=== PATIENT | female | born 1945 | race Caucasian/White ===

== ENCOUNTER → 2018-03-28 15:43 | Outpatient (CLI) | payer MEDICARE, OTHER, SELFPAY ==
--- NOTE | 2018-03-28 15:47 | BI_ITS ---
MAMMOGRAPHY - BILATERAL SCREENING REASON FOR EXAM: Female, 72 years old. Routine annual screening examination. PERTINENT HISTORY: Non-contributory. TECHNIQUE: Digital bilateral breast callie (3D mammographic acquisition) in the CC and MLO projections. 2-D mediolateral oblique (MLO) and craniocaudad (CC) views of both breasts were obtained. CAD: Full Field Digital Mammography with Computer Added Detection was performed. COMPARISON: Comparison is made with prior study dated March 16, 2017 and February 26, 2016. FINDINGS: Breast Composition: The breasts are heterogeneously dense, which may obscure small masses. There are no dominant masses or suspicious calcifications. Stable diffuse bilateral calcifications. Stable appearance of the bilateral axillary lymph nodes. No other significant abnormalities are identified. There has been no significant change since the prior study. BI/SCREENING MAMM (CAD), BILAT IMPRESSION: Stable bilateral screening mammogram. Yearly follow-up mammogram recommended. (A) ASSESSMENT CATEGORY: BIRADS Category 2: Benign. A letter regarding these results will be sent to the patient by the facility within 30 days. Approximately 10% of breast cancers are not detected by mammography. A normal mammogram should not delay biopsy of a clinically suspicious abnormality. [id number] Electronically Signed: Aiden Dalton MD at 8:16 EST Tel [phone], Service support ,
== END ==
PROVIDERS: Family Provider Internal Medicine; PCP Internal Medicine; Visit Provider Internal Medicine
DX: Z12.31 Encounter for screening mammogram for malignant neoplasm of breast (principal)
CPT/HCPCS: 77063; 77067

== ENCOUNTER → 2019-04-19 | Outpatient (CLI) | payer MEDICARE, OTHER, SELFPAY ==
--- NOTE | 2019-04-19 12:50 | BI_ITS ---
MAMMOGRAPHY - BILATERAL SCREENING REASON FOR EXAM: Female, 73 years old. Routine annual screening examination. PERTINENT HISTORY: Non-contributory. TECHNIQUE: Digital bilateral breast maddie (3D mammographic acquisition) in the CC and MLO projections. 2-D mediolateral oblique (MLO) and craniocaudad (CC) views of both breasts were obtained. CAD: Full Field Digital Mammography with Computer Added Detection was performed. COMPARISON: Comparison is made with prior study dated March 28, 2018 and March 24, 2017. FINDINGS: Breast Composition: The breasts are heterogeneously dense, which may obscure small masses. There are no dominant masses or suspicious calcifications. Stable scattered calcifications bilaterally. No focal clusters seen. Stable benign-appearing bilateral axillary lymph nodes. No other significant abnormalities are identified. There has been no significant change since the prior study. BI/SCREEN MAMM (CAD) W/MADDIE BILAT IMPRESSION: Stable bilateral screening mammogram. Yearly follow-up mammogram recommended. (A) ASSESSMENT CATEGORY: BIRADS Category 2: Benign. A letter regarding these results will be sent to the patient by the facility within 30 days. Approximately 10% of breast cancers are not detected by mammography. A normal mammogram should not delay biopsy of a clinically suspicious abnormality. [id number] Electronically Signed: Aiden Dalton, at 14:28 EST , Service support ,
== END | disposition home or self-care (01) ==
PROVIDERS: PCP Internal Medicine; Referring Provider Internal Medicine; Visit Provider Internal Medicine
DX: Z12.31 Encounter for screening mammogram for malignant neoplasm of breast (principal)
CPT/HCPCS: 77063; 77067

== ENCOUNTER → 2020-07-16 08:37 | Outpatient (CLI) | payer MEDICARE, OTHER, SELFPAY ==
--- NOTE | 2020-07-16 08:42 | BI_ITS ---
MAMMOGRAPHY - BILATERAL SCREENING REASON FOR EXAM: Female, 74 years old. Routine annual screening examination. PERTINENT HISTORY: Non-contributory. TECHNIQUE: Digital bilateral breast maddie (3D mammographic acquisition) in the CC and MLO projections. 2-D mediolateral oblique (MLO) and craniocaudad (CC) views of both breasts were obtained. CAD: Full Field Digital Mammography with Computer Added Detection was performed. COMPARISON: Comparison is made with prior study dated 10/18/2019 and 03/28/2018. FINDINGS: Breast Composition: The breasts are heterogeneously dense, which may obscure small masses. There are no dominant masses or suspicious calcifications. Stable scattered bilateral calcifications. No focal cluster is seen. No other significant abnormalities are identified. There has been no significant change since the prior study. BI/SCRN MAMM (CAD)W/MADDIE BILAT IMPRESSION: Stable bilateral screening mammogram. Yearly follow-up mammogram recommended. (A) ASSESSMENT CATEGORY: BIRADS Category 2: Benign. A letter regarding these results will be sent to the patient by the facility within 30 days. Approximately 10% of breast cancers are not detected by mammography. A normal mammogram should not delay biopsy of a clinically suspicious abnormality. [id number] Electronically Signed: Aiden Dalton MD at 9:21 EDT , Service support ,
== END ==
PROVIDERS: PCP Internal Medicine; Referring Provider Internal Medicine; Visit Provider Internal Medicine
DX: Z12.31 Encounter for screening mammogram for malignant neoplasm of breast (principal)
CPT/HCPCS: 77063; 77067

== ENCOUNTER → 2021-07-19 | Outpatient (CLI) | payer MEDICARE, OTHER, SELFPAY ==
--- NOTE | 2021-07-19 08:48 | BI_ITS ---
MAMMOGRAPHY - BILATERAL SCREENING REASON FOR EXAM: Female, 75 years old. Routine annual screening examination. PERTINENT HISTORY: Non-contributory. TECHNIQUE: Digital bilateral breast maddie (3D mammographic acquisition) in the CC and MLO projections. 2-D mediolateral oblique (MLO) and craniocaudad (CC) views of both breasts were obtained. CAD: Full Field Digital Mammography with Computer Added Detection was performed. COMPARISON: Comparison is made with prior study dated 07/16/2020 and 04/19/2019. FINDINGS: Breast Composition: The breasts are heterogeneously dense, which may obscure small masses. There are no dominant masses or suspicious calcifications. Since prior study, there has been a progression of the microcalcifications diffusely in both breasts more prominent on the left side. No other significant abnormalities are identified. BI/SCRN MAMM (CAD)W/MADDIE BILAT IMPRESSION: There is been an increase in the scattered bilateral microcalcifications without a focal cluster seen. Yearly follow-up mammogram recommended. (A) ASSESSMENT CATEGORY: BIRADS Category 2: Benign. A letter regarding these results will be sent to the patient by the facility within 30 days. Approximately 10% of breast cancers are not detected by mammography. A normal mammogram should not delay biopsy of a clinically suspicious abnormality. [id number] Electronically Signed: Aiden Dalton MD at 10:29 EDT ,
== END | disposition home or self-care (01) ==
PROVIDERS: PCP Internal Medicine; Referring Provider Clinical Nurse Specialist; Visit Provider Clinical Nurse Specialist
DX: Z12.31 Encounter for screening mammogram for malignant neoplasm of breast (principal)
CPT/HCPCS: 77063; 77067

== ENCOUNTER → 2022-05-04 | Outpatient (CLI) | payer MEDICARE, OTHER, SELFPAY ==
--- NOTE | 2022-05-04 12:50 | CT_ITS ---
STUDY: CT LUMBAR SPINE WITH INTRATHECAL CONTRAST (LUMBAR CT MYELOGRAM) REASON FOR EXAM: Female, 76 years old. RADICULOPATHY RADIATION DOSAGE (If Supplied By Facility): CTDIvol = ( 11.60 ) mGy, DLP = ( 279.08 ) mGycm TECHNIQUE: Transaxial images were obtained from the T12 vertebra through the S1 vertebral level, following intrathecal administration of 10 ml of ISOVUE-M 200 contrast material, performed by Dr. TYLER Almanza. Please refer to this physicians technical notes for procedural details. Coronal and sagittal reconstructions were obtained. Individualized dose optimization techniques were used for this CT. COMPARISON: None. FINDINGS: Normal lumbar lordosis. There is no substantial scoliosis. The patient is status post laminectomy and interpedicular screw and herman fixation at the L2-L3, L3-L4 and L4-L5 levels. There is dependent layering of contrast material in the distal thecal sac. The conus medullaris terminates in a normal position at the L1-L2 level. There is no demonstrated cauda equina nerve root abnormality or intraspinal mass. L1-2: Marked degree of spinal stenosis at the L1-L2 level caused by posterior spondylosis and hypertrophy of the facet joints as well as the ligamentum flavum. Marked degree of disc space narrowing with degeneration and spondylosis. L2-3: Marked degree of disc space narrowing. The patient is status post interpedicular screw and herman fixation. No significant stenosis seen. L3-4: Status post interpedicular screw and herman fixation. No evidence of spinal stenosis. L4-5: Mild degree of anterior listhesis of L4 on L5. Disc space narrowing. Spondylosis. No significant stenosis is seen. L5-S1: Normal endplates. Normal disc height and morphology. Normal bilateral facet joints. Normal central canal and bilateral lateral recesses. Normal bilateral intervertebral neural foramina. Degenerative changes. Atherosclerotic plaque formation of the abdominal aorta. CT/Spine Lumbar WITH Contrast IMPRESSION: Spinal stenosis at the T12-L1 and L1-L2 levels as described. Electronically Signed: Aiden Dalton MD at 15:21 EST ,
[2022-05-04 12:55] VITALS: BP 143/71; PULSE 89; RESP 18; TEMP 36.8; O2SAT 97; BMI 26.9
--- NOTE | 2022-05-04 13:24 | RAD_ITS ---
PROCEDURE: LUMBAR MYELOGRAM DATE OF EXAMINATION: 05/04/2022. INDICATION: Female, 76 years old. Low back pain. Prior laminectomy and fusion at the L2-L3, L3-L4 and L4-L5 levels. PHYSICIAN: Aiden Dalton M.D. CONSENT: The patient''s history and physical findings were reviewed. The lumbar myelogram procedure was discussed with the patient prior to signing a consent. SEDATION: Local anesthesia with 3 mL of 1% lidocaine was used. FLUOROSCOPY TIME (if supplied): (1:30) minutes/seconds. Injection Information: 10 cc of M 200 Number of images obtained: 4 TECHNIQUE: Digital fluoroscopy was used to identify a safe approach for the lumbar myelogram. The back was prepped and draped in usual fashion. Local anesthesia was utilized. Under fluoroscopic guidance a 22-gauge spinal needle was inserted into the spinal canal at the L2-L3 level. Clear spinal fluid was seen. The. 10 mL of Isovue 200 M was injected into the spinal canal. The patient status post laminectomy and interpedicular screw and herman fixation at the L2-L3, L3-L4 and L4-L5 levels. Multilevel disc space narrowing. Mild anterior listhesis of L4 on L5. There is evidence of a spinal stenosis and blockage at the L1-L2 level. A CT scan will follow. RAD/Lumbar Myelogram IMPRESSION: Successful lumbar myelogram. A CT scan will follow. Electronically Signed: Aiden Dalton MD at 14:37 EST ,
[2022-05-04] MEDS: Lidocaine 2% (5ml sdv) 5 ML VIAL.MPF INFILT (13:45)
[2022-05-04 14:12] VITALS: BP 126/70; PULSE 79; RESP 18; O2SAT 97
== END | disposition home or self-care (01) ==
LOC: RAD 12:47
PROVIDERS: PCP Internal Medicine; Referring Provider Orthopaedic Surgery Orthopaedic Surgery of the Spine; Visit Provider Orthopaedic Surgery Orthopaedic Surgery of the Spine
DX: M54.10 Radiculopathy, site unspecified (principal)
CPT/HCPCS: 62304; 72132; Q9965

== ENCOUNTER 2022-06-07 07:28 | Outpatient (RCR) | payer MEDICARE, OTHER, SELFPAY ==
--- NOTE | 2022-06-07 09:27 | HP.PTEVAL_ITS ---
Patient's Visit Information NORY AUGUSTIN is a 76 year old F referred to Physical Therapy by Dr. Carlos Manuel Clifford MD with a diagnosis of Clifford. Date of Evaluation: 06/07/22 Physical Therapist: KRISTINA Lopez - Visit Plan Plan: Hold Chart at this time. Pt will call in after she has her back surgery. Pt is unable to stand up on her own because as soon as she stands up her legs want to give out and within one min her legs are buckling and therapist has to stabilize the pt. May DC this chart at that time and have the back surgeon referral take over for back surgery and balance - Subjective 10 years ago she had LB surgery where she had a fusion and did not have any issues and played [employer] and bowled. She did some AT and quit coming to AT and just did exercises with stretch bands cause if she doesn't she can not walk. She used to get up and get her housework done and flower beds etc and then in Jan she started to have L sided back pain and now she is so unstable. Now if she starts to fall, she falls. On June 27 she is having back surgery above where she had surgery last time. She went to another Dr and a neurologist and an MRI and after that she needs surgery and will get it on June 27. Dr Colindres made the referral for PT before they got the results of the MRI. She was told that she had neuropathy but has not lost feeling in her feet. She can only stand for 5 min and then her legs hurt from the knee down and it is almost like she can not move her legs. She can drive and sit for as long as she can wants with no issue. She uses the walker at all times when she is out. She uses a cane or furniture at home. She fell in [place] down the steps and slipped with her slick socks and did not have a banister at a time. Stairs: up and down at least once a day. She sometimes goes 2 feet to step and sometimes recip with a railing on one side. - Pain B lateral calf pain Pain Intensity (Out of 10): 10 Comment: with walking or standing - Objective Sit to stand: she has to use the knees on the back of the chair and unstable on her feet for a second but able to get up without using her arms. Pt is unable to heel raise B but she is able to B toe raise approx 1/2 normal ROM. Gait: walks with walker out in front with decrease heel to toe pattern and no push off with flexed B knees and flexed trunk. LE MMT: R hip flex 17.1 and L hip flex 18.3. R knee ext 20.5 and L knee ext 23.3. R knee flex 16.3 and L 18.1. Patellar DTR 0/3 B. Tinetti 10. Standing balance: pt needs min A and she is unable to stand greater than 2 seconds without UE support and her knees start to buckle within one minute of standing and pt complains of legs giving out and its getting worse. - Balance/Special Test Scores Tinetti Balance Score: 5 Tinetti Gait Score: 5 Tinetti Balance & Gait Score: 10 Lower Extremity Functional Score: 25 - Rehabilitation Potential Rehabilitation Potential: Good - Anticipated Interventions Thank you for the opportunity to evaluate your patient. For Medicare and Medicare HMO plans, please review the plan of care and approve it. It will need to be FAXED BACK to us at [phone] for Medicare purposes. For Medicare only, by signing this I certify the plan of care. Please let me know if there are questions or concerns regarding this plan of care. Physician Signature: Date:
== END 2022-06-07 19:00 | disposition home or self-care (01) ==
LOC: PT 07:28
PROVIDERS: PCP Internal Medicine; Referring Provider Psychiatry & Neurology Neurology; Visit Provider Psychiatry & Neurology Neurology
DX: G62.9 Polyneuropathy, unspecified (principal)
CPT/HCPCS: 97162

== ENCOUNTER → 2022-06-24 | Outpatient (CLI) | payer MEDICARE, OTHER, SELFPAY ==
--- NOTE | 2022-06-24 14:01 | STRESSREP_ITS ---
Stress Test Report Date: 06/24/2022 Procedure: Pharmacologic stress nuclear imaging study Indications: Abnormal EKG Consent: Per the patient Procedure: The patient underwent pharmacologic (Regadenoson 0.4mg ) evaluation with a peak heart rate of 180 beats per minute (81%predicted maximal heart rate) and a peak blood pressure of 148 over mmHg. The baseline ECG demonstrated normal sinus rhythm. The peak pharmacologic ECG demonstrated no ischemic. [There were no cardiac dysrhythmias pretest, during pharmacologic infusion, or recovery]. [There was no complaint of chest discomfort during pharmacologic infusion or recovery]. The patient was injected with 11.8 millicuries of technetium 99m Cardiolite and subsequently rest SPECT Cardiolite nuclear imaging was obtained in the horizontal long, vertical long, and short axis views. The patient underwent pharmacologic (Regadenoson) evaluation. The patient was injected with 33.9 millicuries of technetium 99m Cardiolite and subsequently stress SPECT Cardiolite nuclear imaging was obtained in the horizontal long, vertical long, and short axis views. A gated Cardiolite study at peak stress was obtained. The examination was stopped secondary to completion of protocol. Rest and stress SPECT Cardiolite nuclear imaging status post realignment, normalization, and attenuation correction demonstrate uniform tracer uptake with no fixed or reversible perfusion defect. [There is end systolic thickening and brightening]. [The gated Cardiolite study demonstrates myocardial thickening and inward wall motion]. The reported LVEF is 89%. Impression: 1. Pharmacologic (Regadenoson) evaluation 2. Peak pharmacologic ECG with no ischemic. 3. No fixed or reversible perfusion defect. 5. No complaints of chest pain during the study. 6. The gated Cardiolite study reports an LVEF of 89%. This note was generated with [employer] software. It may contain incorrect words, spelling, and punctuation that were not noted in checking the note before signing.
== END | disposition home or self-care (01) ==
LOC: CVS 06:21
PROVIDERS: PCP Internal Medicine; Referring Provider Physician Assistant Medical; Visit Provider Physician Assistant Medical
DX: R94.31 Abnormal electrocardiogram [ECG] [EKG] (principal); E11.9 Type 2 diabetes mellitus without complications; I10 Essential (primary) hypertension
CPT/HCPCS: 78452; 93017; A9500; A4216; J2785

== ENCOUNTER 2022-07-03 12:21 | Inpatient (IN) | payer MEDICARE, OTHER, SELFPAY ==
[2022-07-03 12:47] VITALS: BP 147/64; PULSE 100; RESP 16; TEMP 37.2; O2SAT 100; BMI 26.6
[2022-07-03] MEDS: Gabapentin 300 MG Capsule PO ×2 (14:17→20:35)
[2022-07-03] MEDS: metFORMIN HCl 500 MG Tablet PO (17:09)
[2022-07-03 17:23] VITALS: O2SAT 100
[2022-07-03 17:30] LABS: Bedside Glucose 144 mg/dL (74-106)
[2022-07-03 20:00] VITALS: BP 137/62; PULSE 119; RESP 18; TEMP 37.7; O2SAT 98
[2022-07-03] MEDS: Lisinopril 20 MG Tablet PO (20:34)
[2022-07-03] MEDS: Niacin SA 500 MG Tablet PO (20:34)
[2022-07-03 23:49] VITALS: TEMP 37.7
[2022-07-04] MEDS: cycloBENZAPRine HCl 5 MG TABLET PO (03:57)
[2022-07-04] MEDS: Gabapentin 300 MG Capsule PO ×2 (05:11→14:15)
[2022-07-04 05:39] LABS: Absolute Lymphocyte Count 2.09 X10^3/uL (0.83-4.51); Absolute Neutrophil Count 8.9 X10^3/uL (2.0-7.7); Basophil% 0.8 % (0-1); Eosinophil# 0.04 X10^3/uL; Eosinophils% 0.3 % (0-5); Hematocrit 25.6 % (37-47); Hemoglobin 8.5 g/dL (12.0-15.0); Lymphocyte # 2.09 X10^3/ul (0.83-4.51); Lymphocyte % 16.2 % (19-41); Mean Corp Hgb Conc 33.2 g/dL (32-36); Mean Corpuscular Hgb 29.2 pg (27.0-32.0); Monocyte# 1.52 X10^3/uL; Monocyte% 11.8 % (0-10); NRBC Flagged by Analyzer 0 % (0-5); Neutrophil # 8.91 X10^3/uL (2.7-7.7); Neutrophil % 69.3 % (47-70); POSITIVE DIFFERENTIAL YES; Platelet Count 330 K/mm3 (150-450); RBC Distribution Width CV 13.2 % (11.6-14.6); RBC Distribution Width SD 42.3 fl (35.1-43.9); Red Blood Count 2.91 M/mm3 (4.2-5.4); White Blood Count 12.9 K/mm3 (4.4-11.0)
[2022-07-04 06:04] LABS: Differential Indicated SCAN CRITERIA MET
[2022-07-04 07:03] LABS: ALB/GLOB Ratio 0.7 RATIO (0.9-2.4); AST(SGOT) 19 U/L (15-37); Alanine Aminotransfer ALT/SGPT 21 U/L (13-56); Albumin, Serum 2.7 g/dL (3.2-5.0); Alkaline Phosphatase 59 U/L (45-117); Anion Gap 7 (5-15); BUN 17 mg/dL (7-18); BUN/Creat Ratio 21.1 RATIO (10-20); Calcium,Total 9.1 mg/dL (8.5-10.1); Chloride 98 mmol/L (98-107); Creatinine, Serum 0.81 mg/dL (0.55-1.02); EST Glomerular Filtration Rate 74 mL/min (>60); Est Glom Filt Rate - Afr Amer 89 mL/min (>60); Estimated Creatinine Clearance 56.72 ml/min; Glucose 252 mg/dL (74-106); Magnesium 1.4 mg/dL (1.6-2.6); Phosphorus 2.5 mg/dL (2.5-4.9); Potassium 3.9 mmol/L (3.5-5.1); Protein, Total 6.7 g/dL (6.4-8.2); Sodium Level 127 mmol/L (136-145)
[2022-07-04 07:12] VITALS: O2SAT 97
[2022-07-04 07:15] LABS: Bedside Glucose 231 mg/dL (74-106)
[2022-07-04 07:38] VITALS: BP 143/52; PULSE 115; RESP 16; TEMP 37.2; O2SAT 95
[2022-07-04] MEDS: Lisinopril 20 MG Tablet PO ×2 (08:10→20:38)
[2022-07-04] MEDS: Loratadine 10 MG Tablet PO (08:10)
[2022-07-04] MEDS: HYDROcodone Bitartrate/Apap 5/325 Tablet PO ×2 (08:10→14:15)
[2022-07-04] MEDS: Glimepiride 1 MG Tablet PO (08:10)
[2022-07-04] MEDS: amLODIPine 5 MG Tablet PO (08:10)
[2022-07-04] MEDS: Multivitamins,Therapeutic Tablet 1 TABLET PO (08:10)
[2022-07-04 08:31] LABS: Vitamin D,25 Hydroxy 50.1 ng/mL
[2022-07-04 09:37] LABS: Absolute Lymphocyte Count 1.57 X10^3/uL (0.83-4.51); Absolute Neutrophil Count 9.8 X10^3/uL (2.0-7.7); Basophil# 0.07 X10^3/uL; Basophil% 0.5 % (0-1); Eosinophil# 0.01 X10^3/uL; Eosinophils% 0.1 % (0-5); Hematocrit 25.1 % (37-47); Hemoglobin 8.4 g/dL (12.0-15.0); Lymphocyte # 1.57 X10^3/ul (0.83-4.51); Lymphocyte % 12.1 % (19-41); Mean Corp Hgb Conc 33.5 g/dL (32-36); Mean Corpuscular Hgb 29.3 pg (27.0-32.0); Mean Corpuscular Volume 87.5 fL (81-99); Mean Platelet Vol. 8.7 fl (6.2-12.0); Monocyte# 1.31 X10^3/uL; Monocyte% 10.1 % (0-10); NRBC Flagged by Analyzer 0 % (0-5); Neutrophil # 9.77 X10^3/uL (2.7-7.7); Neutrophil % 75.3 % (47-70); Platelet Count 328 K/mm3 (150-450); RBC Distribution Width CV 13.2 % (11.6-14.6); RBC Distribution Width SD 41.8 fl (35.1-43.9); Red Blood Count 2.87 M/mm3 (4.2-5.4)
[2022-07-04 09:59] LABS: ALB/GLOB Ratio 0.7 RATIO (0.9-2.4); AST(SGOT) 21 U/L (15-37); Alanine Aminotransfer ALT/SGPT 20 U/L (13-56); Albumin, Serum 2.7 g/dL (3.2-5.0); Alkaline Phosphatase 59 U/L (45-117); Anion Gap 7 (5-15); BUN 20 mg/dL (7-18); BUN/Creat Ratio 17.5 RATIO (10-20); Calcium,Total 9.2 mg/dL (8.5-10.1); Chloride 98 mmol/L (98-107); Creatinine, Serum 1.14 mg/dL (0.55-1.02); EST Glomerular Filtration Rate 49 mL/min (>60); Est Glom Filt Rate - Afr Amer 60 mL/min (>60); Globulin 4.1 g/dL (2.2-4.2); Glucose 248 mg/dL (74-106); Magnesium 1.4 mg/dL (1.6-2.6); Phosphorus 2.9 mg/dL (2.5-4.9); Potassium 4.1 mmol/L (3.5-5.1); Protein, Total 6.8 g/dL (6.4-8.2); Sodium Level 128 mmol/L (136-145)
[2022-07-04 10:03] LABS: Vitamin D,25 Hydroxy 49.7 ng/mL
--- NOTE | 2022-07-04 10:10 | HP.PCM_ITS ---
HPI - General General Date of Admission: 07/03/22 Date of Service: 07/04/22 Chief Complaint: Debility due to Lumbar decompression and fusion for spinal canal stenosis. HPI Narrative PATRICIA AUGUSTIN, is a 76 YO F with a PMH of hypertension, diabetes mellitus type 2, lumbar radiculopathy with myelopathy, lumbar canal stenosis, left anteri or hemiblock, osteopenia and osteoarthritis who underwent a lumbar laminectomy and fusion with removal of hardware on 06/27/[address] Aragon. She was seen by PT/OT post operatively and recommendation was made for acute rehab. Patricia was admitted to the acute inpt rehab unit at [facility] on 07/01/22 for 3 hours of therapy daily to restore function/independence at or near her level prior to surgery. Prior to surgery she had a pharmacologic stress test that was negative for ischemia. Afebrile - Temp last night was 99.8. She tells me that she had a Khan catheter while at [facility]. She denies burning with urination but, It doesn't feel the same down there. WBC is elevated. VSS-systolic blood pressure is mildly elevated and she has been tachycardic since yesterday midday. She was taking 25 mg of hydrochlorothiazide daily prior to admission. She has also had 3 very loose bowel movements today which she associates with drinking multiple cups of coffee between last night and this morning. Maintaining appropriate oxygen saturation on RA Oral intake is good Discussed with nursing - no problems that need addressed Reviewed the PT/OT/ST notes Medication list reviewed. Andria tells me that her pain is well controlled. She slept well last night. She denies N/V. She denies lightheadedness. [facility] Medical History (Updated 07/04/22 @ 11:[address] Kyara Green DO) Benign essential HTN Cataract Diabetes mellitus, type 2 Lumbar canal stenosis Osteoarthritis Osteopenia Radiculopathy Home Medications Chondroitin Sulfate 1 tab PO DAILY 02/28/13 [History Last Taken Unknown] lisinopril 10 mg tablet 20 mg PO BID BP 02/28/13 [History Last Taken Unknown] metformin 500 mg tablet 500 mg PO DINNER Blood sugar 02/28/13 [History Last Taken Unknown] niacin 500 mg tablet,extended release 24 hr 500 mg PO QHS Supplement 02/28/13 [History Last Taken Unknown] omega-3 fatty acids-fish oil 360 mg-1,200 mg capsule 1 ea PO DAILY Supplement 02/28/13 [History Last Taken Unknown] amlodipine 5 mg tablet 5 mg PO DAILY BP 07/03/22 [History Last Taken Unknown] calcium carb-ergocalciferol (vit D2) 600 mg calcium-200 unit tablet 1 tab PO DAILY Supplement 07/03/22 [History Last Taken Unknown] cyclobenzaprine 5 mg tablet 5 - 10 mg PO TID PRN Muscle spasms 07/03/22 [History Last Taken Unknown] docusate sodium 100 mg capsule 100 mg PO QODAY Constipation 07/03/22 [History Last Taken Unknown] fexofenadine 180 mg tablet 180 mg PO DAILY Allergies 07/03/22 [History Last Taken Unknown] gabapentin 300 mg capsule 300 mg PO TID Neuropathy 07/03/22 [History Last Taken Unknown] glimepiride 1 mg tablet 1 mg PO DAILY Blood sugar 07/03/22 [History Last Taken Unknown] glucosamine sulfate 500 mg tablet (Glucosamine) 500 mg PO BID Supplement 07/03/22 [History Last Taken Unknown] multivitamin 1 tab PO DAILY Supplement 07/03/22 [History Last Taken Unknown] oxycodone-acetaminophen 5 mg-325 mg tablet (Percocet) 1 tab PO Q6H PRN Pain 1-10 07/03/22 [History Last Taken Unknown] Allergy/AdvReac Type Severity Reaction Status Date / Time chocolate flavor Allergy Severe Unknown Verified 06/24/22 08:51 aspirin AdvReac Other Verified 06/24/22 08:51 Family History (Updated 07/04/22 @ 10:[address] Kyara Green DO) Mother Myocardial infarction Alzheimer's dementia Father Myocardial infarction Cancer Prostate cancer Surgical History (Updated 07/04/22 @ 10:[address] Kyara Green DO) H/O bilateral cataract extraction History of hysterectomy History of lumbar fusion History of tubal ligation S/P hysterectomy S/P lumbar fusion S/P lumbar fusion Social History (Updated 07/04/22 @ 11:[address] Kyara Green DO) household members: spouse housing: house number of children: 0 Smoking Status: Never smoker Electronic Cigarette Use: not used alcohol intake: never ROS Constitutional Constitutional: Denies anorexia, change in weight, chills, difficulty sleeping, fatigue, fever(s) or night sweats Eyes Eyes: Denies blurry vision, change in vision, eye pain or loss of vision ENT HEENT: Denies abnormal hearing, dysphagia, headache(s), hearing loss, nasal congestion or sore throat Cardiovascular Cardiovascular: Denies chest pain, dyspnea on exertion, edema, lightheadedness, orthopnea, palpitations, paroxysmal nocturnal dyspnea or syncope Respiratory/Chest Respiratory/Chest: Denies cough, dyspnea, shortness of breath at rest, shortness of breath with exertion or wheezing Gastrointestinal Gastrointestinal: Reports other Details: She had 3 loose stools today and she attributes this to drinking too much coffee. ; Denies abdominal pain, constipation, dyspepsia, hematemesis, hematochezia, nausea or vomiting Genitourinary Genitourinary: Reports urinary urgency; Denies dysuria, hematuria, nocturia, urinary frequency, urinary hesitancy or urinary incontinence Musculoskeletal Musculoskeletal: Denies joint pain, joint swelling or neck pain Integumentary Integumentary: Denies pruritus or rash Neurologic Neurologic: Reports weakness; Denies abnormal hearing, confusion, disequilibrium, dizziness, headache(s), paresthesias, seizures, sensory deficit or tremor(s) Psychiatric Psychiatric: Denies anxiety, depression, homicidal ideation or suicidal ideation Endocrine Endocrinology: Denies change in body appearance, polydipsia or polyuria Hematologic/Lymphatic Hematologic/Lymphatic: Denies easy bleeding, easy bruising or lymphadenopathy Allergic/Immunologic Allergic/Immunologic: Denies rhinitis, eczemia or asthma Vital Signs Vital Signs Vital Signs: 07/03/22 12:47 07/03/22 17:23 07/03/22 20:00 Temperature 98.9 F 99.9 F H Temperature Source Temporal Oral Pulse Rate 100 119 H Pulse Strength Respiratory Rate 16 18 Respiratory Effort Respiratory Depth Respiratory Pattern Blood Pressure 147/64 H 137/62 H Blood Pressure Mean 91 87 Blood Pressure Source Monitor Monitor Blood Pressure Position Semi-Fowlers Sitting Blood Pressure Location Right Arm Right Forearm Pulse Ox 100 100 98 Oxygen Delivery Method Room Air Room Air Room Air 07/03/22 20:00 07/03/22 20:00 07/03/22 23:49 Temperature 99.8 F H Temperature Source Oral Pulse Rate 119 H Pulse Strength Normal (2+) Respiratory Rate 18 Respiratory Effort Normal Non-Labored Respiratory Depth Normal Respiratory Pattern Normal Blood Pressure Blood Pressure Mean Blood Pressure Source Blood Pressure Position Blood Pressure Location Pulse Ox 98 Oxygen Delivery Method Room Air 07/04/22 07:12 07/04/22 07:38 07/04/22 09:43 Temperature 99.0 F Temperature Source Oral Pulse Rate 115 H Pulse Strength Normal (2+) Respiratory Rate 16 Respiratory Effort Respiratory Depth Respiratory Pattern Blood Pressure 143/52 H Blood Pressure Mean 82 Blood Pressure Source Monitor Blood Pressure Position Semi-Fowlers Blood Pressure Location Left Arm Pulse Ox 97 95 Oxygen Delivery Method Room Air Room Air Weight Weight: 132 lb Body Mass Index (BMI) 26.6 Physical Exam Const alert, oriented x3 and no apparent distress Constitutional Narrative: Making good eye contact, appropriate General Appearance: cooperative and comfortable HEENT normocephalic and head/scalp atraumatic HEENT Narrative: Very DRY MM. normal buccal mucosa. Throat: Negative for hoarseness Eyes PERRL, EOMs intact bilaterally, conjunctivae normal and no scleral icterus General Eye: normal appearance of both eyes and normal light reflex Neck no lymphadenopathy, supple, no JVD and no carotid bruits General: trachea midline Chest Chest: symmetrical chest wall rise Resp normal respiratory effort and no use of accessory muscles Resp Narrative: Not tachypneic and no conversational dyspnea. She has coarse crackles in both bases with no cough and no SOB. Effort and Inspection: able to speak in complete sentences Cardio regular rhythm, S1 normal heart sound, S2 normal heart sound, no murmurs, no rub and no gallops Cardio Narrative: Tachycardic with HR 100-115 GI normal to inspection, nondistended, normoactive bowel sounds, soft to palpation and non-tender GI Narrative: No guarding with palpation. Back/Spine Back/Spine Narrative: She tells me that her back is not hurting at this time. She has only had 1 Hydrocodone since admission to rehab and that was this AM. Extremity normal capillary refill, no clubbing, cyanosis or edema and no calf tenderness Skin Skin Narrative: No rashes, no skin breakdown. Wound Narrative: She has a cicatrix on her low back from recent Laminectomy and fusion. It is intact and has no erythema and No DC. Neuro oriented x3 and CN's II-XII intact bilaterally Neuro Narrative: LE's are weak BL, R>L. Denies any numbness in any part of her body. Psych affect normal Psych Narrative: Appropriate, making good eye contact. Able to stay on topic and focus. No flight of ideas. Does not appear anxious or depressed. Conversant and relating well to staff. Results Lab / Micro Data Result Diagrams: 07/04/22 09:24 07/04/22 09:24 Labs: Laboratory Results - last 24 hr 07/03/22 16:59: POC Glucose 144 H 07/04/22 05:08: Hemoglobin A1c 6.0 H 07/04/22 05:08: Vitamin D 25-Hydroxy 50.1 07/04/22 05:08: WBC 12.9 H, RBC 2.91 L, Hgb 8.5 L, Hct 25.6 L, MCV 88.0, MCH 29.2, MCHC 33.2, RDW Std Deviation 42.3, RDW Coeff of [place] 13.2, Plt Count 330, MPV 9.0, Immature Gran % (Auto) 1.600 H, Neut % (Auto) 69.3, Lymph % (Auto) 16.2 L, [place] % (Auto) 11.8 H, Eos % (Auto) 0.3, Baso % (Auto) 0.8, Absolute Neuts (auto) 8.9 H, Absolute Lymphs (auto) 2.09, Nucleated RBC % 0, Diff Path Review M ay foll 07/04/22 05:08: Sodium 127 L, Potassium 3.9, Chloride 98, Carbon Dioxide 22.0, Anion Gap 7, BUN 17, Creatinine 0.81, Estim Creat Clear Calc 56.72, Est GFR (MDRD) Af Amer 89, Est GFR (MDRD) Non-Af 74, BUN/Creatinine Ratio 21.1 H, Glucose 252 H, Calcium 9.1, Phosphorus 2.5, Magnesium 1.4 L, Total Bilirubin 0.60, AST 19, ALT 21, Alkaline Phosphatase 59, Total Protein 6.7, Albumin 2.7 L, Globulin 4.0, Albumin/Globulin Ratio 0.7 L 07/04/22 06:47: POC Glucose 231 H 07/04/22 09:24: WBC 13.0 H, RBC 2.87 L, Hgb 8.4 L, Hct 25.1 L, MCV 87.5, MCH 29.3, MCHC 33.5, RDW Std Deviation 41.8, RDW Coeff of [place] 13.2, Plt Count 328, MPV 8.7, Immature Gran % (Auto) 1.900 H, Neut % (Auto) 75.3 H, Lymph % (Auto) 12.1 L, [place] % (Auto) 10.1 H, Eos % (Auto) 0.1, Baso % (Auto) 0.5, Absolute Neuts (auto) 9.8 H, Absolute Lymphs (auto) 1.57, Nucleated RBC % 0 07/04/22 09:24: Sodium 128 L, Potassium 4.1, Chloride 98, Carbon Dioxide 23.0, Anion Gap 7, BUN 20 H, Creatinine 1.14 H, Estim Creat Clear Calc 40.30, Est GFR (MDRD) Af Amer 60, Est GFR (MDRD) Non-Af 49 L, BUN/Creatinine Ratio 17.5, Glucose 248 H, Calcium 9.2, Phosphorus 2.9, Magnesium 1.4 L, Total Bilirubin 0.50, AST 21, ALT 20, Alkaline Phosphatase 59, Total Protein 6.8, Albumin 2.7 L, Globulin 4.1, Albumin/Globulin Ratio 0.7 L 07/04/22 09:24: Vitamin D 25-Hydroxy 49.7 Assessment & Plan Assessment/Plan (1) Physical debility: (2) Radiculopathy: (3) Lumbar canal stenosis: (4) Myopathy: (5) S/P lumbar fusion: PLAN: 06/27/[address] Geiger (6) Acute blood loss as cause of postoperative anemia: (7) Hypomagnesemia: (8) Hyponatremia: (9) Benign essential HTN: (10) Diabetes mellitus, type 2: (11) Osteoarthritis: (12) Osteopenia: (13) Dehydration: PLAN: Plan PLAN PT for gait stability OT for ADL's Analgesics as needed Bowel protocol Fall precautions Assess for Anxiety/Depression GI prophylaxis - not necessary at this time......she denies any hx of PUD and she has no epigastric pain, N/V. DVT prophylaxis with PORTILLO mccray and SCDs. Will contact Dr. Hartman's office to find out when it is acceptable to start pharmacologic DVT prophylaxis. Follow up with Dr. Geiger and Dr. Jia Gimenez following DC from Rehab AM lab including CMP, CBC, Mag and Phos - personally reviewed. Start an IV of NS Check orthostatics 4 GM of IV mag today and start Magnesium Chloride tomorrow PO. Straight cath today and get a UA. She is feeling not quite right down there and she has leukocytosis with a L shift and a low grade fever. All questions were answered and I reviewed all paperwork sent to us from the [facility]. Recheck a BMP and a MAG in the AM Charges/Coding Visit Charges Inpatient E&M: 50487 Init Hosp L3
[2022-07-04 11:21] VITALS: BP 127/47; BP 128/51; BP 131/50; PULSE 103; PULSE 109; PULSE 124
--- NOTE | 2022-07-04 11:48 | REHABEVAL_ITS ---
Admission Information Primary Diagnosis:: Physical debility secondary to lumbar canal stenosis, radiculopathy and myopathy with recent lumbar laminectomy and fusion. Status Changes from Prescreening?: No changes Identified Actual Problem List:: Pain, ALteration in Cmfrt, Cognitve Impr/Memory Loss (mild ....may be due to medications and suspected UTI. ), Mobility Impaired, Self Care Deficit, Diabetes, Hyperglycemia, BP, Hypertension, Alteration/ Air Exchange, Fluid Change-Dehydration and Alteration-Leisure Activ. Potential Problem List:: DVT, Bleeding, Infection, UTI, Aspiration, Falls, Skin Integrity and Depression Risk of Complications DVT: PORTILLO Hose and Sequential Compression Device Bleeding: Monitor Lab Values, Nursing to Teach Precautions for anti-coagulation therapy., Wound, if applicable, to be assessed every shift. and Stroke patients assessed for lethargy or change in status. Infection: Clinical Staff to Monitor for S/S of infection: and S/S of infection include fever, redness, warmth, etc. Urinary Tract Infection: Monitor for frequency, burning, discomfort, or incontinence. and Nursing will obtain urine sample for urinalysis and C&S when ordered. Aspiration: Clinical staff will monitor for coughing, drooling, congestion., Speech will evaluate swallowing and dsyphasia. and Nursing will monitor patient swallowing during meals. Falls: Patient will be evaluated for Fall Precautions and Patient will be placed on Fall Precautions as indicated per protocol. Skin Breakdown: Nursing will assess skin daily using assessment tool. and Nursing will place on Skin Breakdown Precautions as indicated. Pain: Clinical staff will assess patient's pain level per protocol., Medications will be given, if needed, and the pain level reassessed. and Other methods: Massage, distraction, decrease stimulus, etc. used PRN. Plan of Care Patient requires physician specializing in physical medicine and rehab oversight to provide close medical supervision of rehab issues including: Pain Management, Sleep Problems, Bowel and Bladder, Medical and co-morbidity Management, DVT prophylaxis, Rehabilitation Leadership and Coordination of treatment team Patient needs Physical Therapy: For a minimum of 1 hour and At least 5 out of 7 days Patient needs Physical Therapy to improve:: Mobility, Strengthening, Transfers, Stretching, ROM, Endurance, Stairs, Gait and Balance Patient needs Occupational Therapy: For a minimum of 1 hour and At least 5 out of 7 days Patient needs Occupational Therapy to improve ADL's incl.: Eating, Grooming, Bathing, Dressing, Toileting, Toilet transfers, Community Reintegration, Higher functioning activities, Household tasks, Adaptive Equipment, Splinting and Other activities as determined Patient requires 24/7 Rehabilitation Nursing for: Pain Issues, Identifying and preventing risk factors, Monitoring and reporting current medical conditions, Assisting with ambulation, transfer, and all ADL's, Teaching patients about disease process and medications, Family teaching, Providing safe environment, Bowel and Bladder Issues, Skin integrity and Medication Management Patient needs Validation Scientist/ Case Management for: Discharge Planning, Arranging Home Equipment or Services and Family Interventions Patient needs Dietary and Nutrition Services for: Adequate Nutrition, Nutritional Supplements and Nutritional Education Goals Patient will remain: free from falls and or injury at time of discharge. Patient will perform bed mobility at: MOD I level of assist. Patient will complete transfers from bed to chair at: MOD I level of assist. Patient will ambulate: 100 feet, with LRD and - (250 feet with least restrictive device at mod I on various surfaces) Patient will complete upper body dressing at: MOD I level of assist. Patient will complete lower body dressing at: MOD I level of assist. (With adaptive equipment as needed) Patient will complete toileting at: MOD I level of assist. Patient will perform bathing at: MOD I level of assist. Patient will complete grooming at: MOD I level of assist. Patient will complete home management skills at: MOD I level of assist. Patient will achieve: 12 stairs (Ascend/descend 12 steps with 1 handrail at standby assist to allow access to the basement laundry.) and - (1 curb step) Patient will have pain level of: of 3 or less Patient's skin will: remain intact Patient will receive: adequate nutrition. Discharge Planning Estimated Length of stay (days): 21 Anticipated D/C Destination: Home with Outpt Therapy Was Preadmission Assessment Accurate?: Yes
[2022-07-04] MEDS: Magnesium Sulfate 4gm/100mL 4 GM/100 ML IV.SOLN. IV (15:49)
[2022-07-04] MEDS: 0.9% Saline Lock 10 ML Syringe IV (16:01)
[2022-07-04 16:38] LABS: Bacteria 0 SEEN /hpf (None Seen); Mucous, Urine 0 SEEN /hpf (<or=2+); Red Blood Cells-Urine 0 SEEN /hpf (0-5); Squamous Epithelial Cells - UA 0 SEEN /hpf (5-10)
[2022-07-04 16:45] LABS: Color, Urine Yellow (Yellow); Glucose, Dipstick Normal (Normal); Ketone-Dipstick Negative (Negative); Leukocyte Esterase-Dipstick 25 /ul (Negative); Nitrite-Dipstick Negative (Negative); Occult Blood-Urine Negative /ul (Negative); Protein-Dipstick 30 mg/dl (Negative); Urine Bilirubin Dipstick Negative (Negative); Urine Clarity Clear (Clear); Urine Urobilinogen Normal (Normal); Urine pH 6.5 (5.0 - 8.0)
[2022-07-04 16:51] LABS: Bedside Glucose 85 mg/dL (74-106)
[2022-07-04 17:08] LABS: White Blood Cells 0-5 SEEN /hpf (0-5)
[2022-07-04] MEDS: metFORMIN HCl 500 MG Tablet PO (17:14)
[2022-07-04 19:42] VITALS: BP 128/51; PULSE 103; RESP 18; TEMP 37.2; O2SAT 95
[2022-07-04 20:30] VITALS: PULSE 103; RESP 18; O2SAT 95
[2022-07-04] MEDS: Gabapentin 100 MG Capsule 200 MG PO (20:38)
[2022-07-04] MEDS: Niacin SA 500 MG Tablet PO (20:38)
[2022-07-04] MEDS: 0.9% Normal Saline 1,000 ML 100 ML IV (22:09)
[2022-07-04 22:20] LABS: Bedside Glucose 169 mg/dL (74-106)
--- NOTE | 2022-07-05 02:36 | NURSING ---
Reviewed and agree with Ermias RUIZ, documentation and assessment charting.
[2022-07-05] MEDS: traMADol 50 MG Tablet PO ×2 (05:40→22:05)
[2022-07-05] MEDS: Gabapentin 100 MG Capsule 200 MG PO ×3 (05:41→22:02)
[2022-07-05 06:33] LABS: Anion Gap 6 (5-15); BUN 21 mg/dL (7-18); BUN/Creat Ratio 27.2 RATIO (10-20); Calcium,Total 8.3 mg/dL (8.5-10.1); Chloride 99 mmol/L (98-107); Creatinine, Serum 0.77 mg/dL (0.55-1.02); EST Glomerular Filtration Rate 77 mL/min (>60); Est Glom Filt Rate - Afr Amer 93 mL/min (>60); Estimated Creatinine Clearance 45.94 ml/min; Glucose 171 mg/dL (74-106); Magnesium 2.3 mg/dL (1.6-2.6); Potassium 3.8 mmol/L (3.5-5.1); Sodium Level 128 mmol/L (136-145)
[2022-07-05 07:25] LABS: Bedside Glucose 154 mg/dL (74-106)
[2022-07-05 07:39] VITALS: BP 114/58; PULSE 93; RESP 16; TEMP 37.2; O2SAT 96
[2022-07-05] MEDS: Glimepiride 1 MG Tablet PO (08:29)
[2022-07-05] MEDS: Cholecalciferol (VIT D3) 25 MCG TABLET (1,000 UNITS) PO (08:29)
[2022-07-05] MEDS: Lisinopril 20 MG Tablet PO ×2 (08:29→21:58)
[2022-07-05] MEDS: 0.9% Normal Saline 1,000 ML 100 ML IV (08:29)
[2022-07-05] MEDS: Magnesium Chloride 64 MG Delay Rel.Tablet 128 MG PO (08:30)
[2022-07-05] MEDS: Loratadine 10 MG Tablet PO (08:30)
[2022-07-05] MEDS: Multivitamins,Therapeutic Tablet 1 TABLET PO (08:30)
[2022-07-05] MEDS: amLODIPine 5 MG Tablet PO (08:30)
[2022-07-05] MEDS: 0.9% Saline Lock 10 ML Syringe IV (08:38)
[2022-07-05] MEDS: Menthol/Lanolin/Calamine/Znox 113 GM Tube 1 APPLIC TOPICAL ×2 (09:22→22:01)
[2022-07-05 13:05] LABS: Pathologist Review Reviewed
[2022-07-05] MEDS: metFORMIN HCl 500 MG Tablet PO (16:37)
--- NOTE | 2022-07-05 16:49 | PCM.PROGNOTE ---
Subjective Subjective Afebrile VSS-heart rate is a little better today and was 93 this morning. Blood pressure this a.m. was 114/58. Maintaining appropriate oxygen saturation on RA Oral intake is good for food. Not so good for oral fluid intake. With the IV fluids the fluid balance yesterday was +640 and today it is +520. Discussed with nursing - no problems that need addressed Reviewed the PT/OT/ST notes Medication list reviewed. All lab drawn this AM was personally reviewed. Sodium is still 128 and the potassium is 3.8. BUN is 21 and the creatinine is 0.77, down from 1.14 yesterday. BUNs/creatinine ratio is elevated at 27.2. Calcium corrected for hypoalbuminemia is 9.1 which is normal. Magnesium is 2.3 today following 4 g of IV magnesium sulfate yesterday. The UA was nitrite negative and had 0 RBCs and 0-5 WBCs per high-power field with no bacteria seen. Andria is c/o burning pain in both lateral thighs and in the buttock and lateral hip. She attributes this to using the Nu-step but, I think it is radicular. She walks hunched over with the FWW. She denies chest pain, shortness of breath, cough, palpitations, lightheadedness, cephalgia, nausea/vomiting/abdominal pain, dysuria, calf tenderness and rashes. Objective Data Objective Data Vital Signs: Vital Signs Temp Pulse Resp BP Pulse Ox O2 Del Method 98.9 F 93 16 114/58 L 96 Room Air 07/05/22 07:39 07/05/22 07:39 07/05/22 07:39 07/05/22 07:39 07/05/22 07:39 07/05/22 07:58 Oxygen Delivery Method Room Air Weight: 131 lb 15.993 oz Body Mass Index (BMI) 26.6 Intake & Output: Intake and Output for Last 24 Hours 07/03/22 07/04/22 07/05/22 23:59 23:59 23:59 Intake Total 240 / 240 1390.00 / 1490.00 1790 / 1790 Output Total 750 / 1170 1270 / 1270 Balance 240 / 240 640.00 / 320.00 520 / 520 Lab / Micro Data Result Diagrams: 07/04/22 09:24 07/05/22 05:38 Labs: Laboratory Results - last 24 hr 07/04/22 05:08: Diff Path Review Reviewed 07/04/22 15:30: Urine RBC 0 SEEN, Urine WBC 0-5 SEEN, Ur Squamous Epith Cells 0 SEEN, Urine Bacteria 0 SEEN, Urine Mucus 0 SEEN 07/04/22 16:00: POC Glucose 85 07/04/22 20:42: POC Glucose 169 H 07/05/22 05:38: Sodium 128 L, Potassium 3.8, Chloride 99, Carbon Dioxide 23.0, Anion Gap 6, BUN 21 H, Creatinine 0.77, Estim Creat Clear Calc 45.94, Est GFR (MDRD) Af Amer 93, Est GFR (MDRD) Non-Af 77, BUN/Creatinine Ratio 27.2 H, Glucose 171 H, Calcium 8.3 L, Magnesium 2.3 07/05/22 06:29: POC Glucose 154 H Physical Exam Const alert and oriented x3 Constitutional Narrative: Very pleasant and outgoing. Does everything the therapists ask of her. Sleeping well at night. General Appearance: cooperative Orientation / Consciousness: Negative for confused Resp normal respiratory effort and normal air movement Resp Narrative: persistent coarse crackles in the R base.....the crackles in the left base have resolved. Cardio regular rate, regular rhythm and no gallops GI normal to inspection, nondistended, normoactive bowel sounds, soft to palpation and non-tender GI Narrative: No guarding with palpation Extremity no calf tenderness General Extremity: Negative for edema Skin Skin Narrative: The incision is intact and there is no reggie-incisional erythema or discharge from the wound. General Skin Exam: no breakdown Rashes: no rashes Neuro CN's II-XII intact bilaterally and no focal motor deficits Psych cooperative and affect normal Assessment & Plan Assessment/Plan (1) Physical debility: (2) Radiculopathy: (3) Lumbar canal stenosis: (4) Myopathy: (5) S/P lumbar fusion: PLAN: 06/27/[address] Geiger (6) Acute blood loss as cause of postoperative anemia: (7) Hypomagnesemia: (8) Hyponatremia: (9) Benign essential HTN: (10) Diabetes mellitus, type 2: (11) Osteoarthritis: (12) Osteopenia: (13) Dehydration: PLAN: Plan 1. Continue therapy 2. Try compounded neuropathic cream 3 clicks to the bilateral buttocks, lateral hip and lateral thigh. 3. Recheck another BMP on Monday........by that time the HCTZ should be out of her system and if the NA+ is low we will check a urine sodium and creat and calculate the FENa. 4. Encouraged her once again to up her water intake. Charges/Coding Visit Charges Inpatient E&M: 28534 Subs Hosp L2
[2022-07-05 16:56] LABS: Bedside Glucose 142 mg/dL (74-106)
[2022-07-05 19:53] VITALS: BP 135/53; PULSE 106; RESP 16; TEMP 36.6; O2SAT 96
[2022-07-05 20:14] VITALS: PULSE 106; RESP 16; O2SAT 96
[2022-07-05] MEDS: Neuropathy Pain Cream Compound 60 CLICK TUBE TOPICAL (21:57)
[2022-07-05] MEDS: Niacin SA 500 MG Tablet PO (21:58)
[2022-07-06] MEDS: 0.9% Normal Saline 1,000 ML 100 ML IV (00:18)
[2022-07-06 06:00] VITALS: BMI 26.6
[2022-07-06] MEDS: Gabapentin 100 MG Capsule 200 MG PO ×3 (06:27→20:53)
[2022-07-06] MEDS: Neuropathy Pain Cream Compound 60 CLICK TUBE TOPICAL ×2 (06:27→20:52)
[2022-07-06] MEDS: traMADol 50 MG Tablet PO ×2 (06:31→20:30)
[2022-07-06 06:35] LABS: Bedside Glucose 140 mg/dL (74-106)
[2022-07-06 07:14] VITALS: O2SAT 98
[2022-07-06] MEDS: Multivitamins,Therapeutic Tablet 1 TABLET PO (07:57)
[2022-07-06] MEDS: Glimepiride 1 MG Tablet PO (07:58)
[2022-07-06] MEDS: 0.9% Saline Lock 10 ML Syringe IV (08:15)
[2022-07-06 08:24] VITALS: BP 120/49; PULSE 95; RESP 16; TEMP 37.3; O2SAT 98
[2022-07-06] MEDS: amLODIPine 5 MG Tablet PO (08:30)
[2022-07-06] MEDS: Magnesium Chloride 64 MG Delay Rel.Tablet 128 MG PO (08:30)
[2022-07-06] MEDS: Lisinopril 20 MG Tablet PO ×2 (08:30→20:53)
[2022-07-06] MEDS: Cholecalciferol (VIT D3) 25 MCG TABLET (1,000 UNITS) PO (08:30)
[2022-07-06] MEDS: Loratadine 10 MG Tablet PO (08:30)
[2022-07-06] MEDS: Menthol/Lanolin/Calamine/Znox 113 GM Tube 1 APPLIC TOPICAL ×2 (08:32→20:52)
[2022-07-06 08:54] VITALS: PULSE 95
[2022-07-06] MEDS: metFORMIN HCl 500 MG Tablet PO (17:16)
[2022-07-06 17:25] LABS: Bedside Glucose 95 mg/dL (74-106)
[2022-07-06 19:12] VITALS: BP 120/52; PULSE 94; RESP 17; TEMP 37; O2SAT 96
[2022-07-06] MEDS: Niacin SA 500 MG Tablet PO (20:52)
[2022-07-06 22:00] VITALS: PULSE 94; RESP 17; O2SAT 96
[2022-07-07] MEDS: Gabapentin 100 MG Capsule 200 MG PO ×3 (06:13→20:53)
[2022-07-07] MEDS: Neuropathy Pain Cream Compound 60 CLICK TUBE TOPICAL ×2 (06:15→20:47)
[2022-07-07 07:14] VITALS: BP 126/58; PULSE 96; RESP 16; TEMP 36.5; O2SAT 95
[2022-07-07 07:20] LABS: Bedside Glucose 120 mg/dL (74-106)
[2022-07-07] MEDS: Magnesium Chloride 64 MG Delay Rel.Tablet 128 MG PO (08:47)
[2022-07-07] MEDS: Loratadine 10 MG Tablet PO (08:47)
[2022-07-07] MEDS: Multivitamins,Therapeutic Tablet 1 TABLET PO (08:47)
[2022-07-07] MEDS: Lisinopril 20 MG Tablet PO ×2 (08:47→20:47)
[2022-07-07] MEDS: amLODIPine 5 MG Tablet PO (08:47)
[2022-07-07] MEDS: Cholecalciferol (VIT D3) 25 MCG TABLET (1,000 UNITS) PO (08:47)
[2022-07-07] MEDS: Glimepiride 1 MG Tablet PO (08:47)
[2022-07-07] MEDS: Docusate Sodium 100 MG Capsule PO (08:48)
[2022-07-07] MEDS: Menthol/Lanolin/Calamine/Znox 113 GM Tube 1 APPLIC TOPICAL ×2 (08:52→20:49)
--- NOTE | 2022-07-07 10:27 | PCM.PROGNOTE ---
Subjective Subjective Patricia was seen on team rounds today. Afebrile VSS-heart rate has come down into the 90s with better hydration. Blood pressure is stable. Maintaining appropriate oxygen saturation on RA Oral intake is good. She had 2300 in yesterday and only 1200 out for a fluid balance of +1100. This is day #3 for the Khan catheter. It was inserted for urine retention. UA was negative for infection. The blood sugar record was reviewed. Blood sugars are well controlled with no hypoglycemia. Discussed with nursing - no problems that need addressed Reviewed the PT/OT notes Medication list reviewed. Andria denies lightheadedness, vertigo, CP, SOB at rest, SOB with exertion, cough, nausea, vomiting, abd pain, diarrhea, constipation, dysuria, calf pain and ankle swelling. Andria tells me that her appetite is poor since the surgery. She looks at food and then just cannot eat. She is sleeping well. The neuropathy cream we are now using on the lateral thighs and hip area is helping with the pain a lot. Objective Data Objective Data Vital Signs: Vital Signs Temp Pulse Resp BP Pulse Ox O2 Del Method 97.7 F L 96 16 126/58 H 95 Room Air 07/07/22 07:14 07/07/22 07:14 07/07/22 07:14 07/07/22 07:14 07/07/22 07:14 07/07/22 07:14 Oxygen Delivery Method Room Air Weight: 132 lb 0.91 oz Body Mass Index (BMI) 26.6 Intake & Output: Intake and Output for Last 24 Hours 07/05/22 07/06/22 07/07/22 23:59 23:59 23:59 Intake Total 2370 / 2370 2300 / 2420 240 / 240 Output Total 1695 / 1695 1200 / 1450 700 / 700 Balance 675 / 675 1100 / 970 -460 / -460 Lab / Micro Data Result Diagrams: 07/04/22 09:24 07/05/22 05:38 Labs: Laboratory Results - last 24 hr 07/06/22 16:53: POC Glucose 95 07/07/22 06:25: POC Glucose 120 H Physical Exam Const alert, oriented x3 and no apparent distress Constitutional Narrative: Pleasant. Appropriate. General Appearance: cooperative HEENT Mouth: dry mucous membranes Resp Resp Narrative: She has coarse crackles in the right base. These have been persistent since admission. She denies any history of pneumonia in the past. She has not consistently been using the IS. She denies cough and shortness of breath. The coarse crackles are unchanged after several deep breaths. Cardio regular rate, regular rhythm and no gallops GI normal to inspection, nondistended, normoactive bowel sounds, soft to palpation and non-tender GI Narrative: No guarding with palpation. Urine in the Khan bag is darker than I would like to see it. It is clear. Extremity no calf tenderness General Extremity: Negative for edema Skin Skin Narrative: The incision is intake with no dehiscence, no erythema and no DC. General Skin Exam: no breakdown Rashes: no rashes Neuro CN's II-XII intact bilaterally, no focal motor deficits and no sensory deficits noted Psych thought process normal, cooperative and affect normal Appearance: appropriate Assessment & Plan Assessment/Plan (1) Physical debility: (2) Radiculopathy: (3) Lumbar canal stenosis: (4) Myopathy: (5) S/P lumbar fusion: PLAN: 06/27/[address] Geiger (6) Acute blood loss as cause of postoperative anemia: (7) Hypomagnesemia: (8) Hyponatremia: (9) Benign essential HTN: (10) Diabetes mellitus, type 2: (11) Osteoarthritis: (12) Osteopenia: (13) Dehydration: PLAN: Plan 1. Continue therapy 2. Recheck BMP in the a.m. 3. CBC in the AM. 4. I discussed appetite stimulants with Andria and we talked about Marinol and Remeron. Since she is not depressed she elected to try Marinol at bedtime and will start 2.5 mg nightly. 5. After the swelling related to the surgery has gone down we will taper the gabapentin down to 100 mg 3 times daily. 6. Andria tells me that she was taking 1000 mg of metformin in the morning and 500 mg with dinner and also taking Amaryl 1 mg with breakfast. Her appetite has been poor and the 4:00 sugar is less than 100 putting her at more risk for hypoglycemia. I am going to discontinue the Amaryl at this time and increase metformin to 500 mg twice daily. Charges/Coding Visit Charges Inpatient E&M: 47662 Subs Hosp L2
--- NOTE | 2022-07-07 13:55 | CASEMGMT ---
Social Work IDT met with pt for Team meeting. Discussed patient's progress in PT/OT/SN. SW educated to Medicare approving 12 days with DC date of 07/15. Pt's goal is to return home. Pt lives with her but will need to be independent at time of discharge. IDT and pt are agreeable that pt will be ready to d/c home on 07/15. Therapy is recommending home health PT/OT and pt is agreeable. Pt has all needed DME. SW to followup to arrange for home care. Will ReTeam next week with planned d/c home on 07/15. CHAD Navarrete
[2022-07-07] MEDS: metFORMIN HCl 500 MG Tablet PO (16:52)
[2022-07-07 17:30] LABS: Bedside Glucose 115 mg/dL (74-106)
[2022-07-07] MEDS: traMADol 50 MG Tablet PO (18:45)
[2022-07-07 19:58] VITALS: BP 124/58; PULSE 94; RESP 17; TEMP 36.6; O2SAT 97
[2022-07-07] MEDS: Niacin SA 500 MG Tablet PO (20:47)
[2022-07-07] MEDS: Dronabinol 2.5 MG Capsule PO (20:47)
[2022-07-08 05:25] LABS: Absolute Lymphocyte Count 2.17 X10^3/uL (0.83-4.51); Absolute Neutrophil Count 4.3 X10^3/uL (2.0-7.7); Basophil# 0.05 X10^3/uL; Basophil% 0.7 % (0-1); Eosinophil# 0.12 X10^3/uL; Eosinophils% 1.7 % (0-5); Hemoglobin 7.6 g/dL (12.0-15.0); Lymphocyte # 2.17 X10^3/ul (0.83-4.51); Lymphocyte % 30.1 % (19-41); Mean Corpuscular Hgb 28.8 pg (27.0-32.0); Mean Corpuscular Volume 87.1 fL (81-99); Monocyte# 0.52 X10^3/uL; Monocyte% 7.2 % (0-10); NRBC Flagged by Analyzer 0 % (0-5); Neutrophil # 4.27 X10^3/uL (2.7-7.7); Neutrophil % 59.1 % (47-70); Platelet Count 360 K/mm3 (150-450); RBC Distribution Width CV 13.2 % (11.6-14.6); RBC Distribution Width SD 41.7 fl (35.1-43.9); Red Blood Count 2.64 M/mm3 (4.2-5.4); White Blood Count 7.2 K/mm3 (4.4-11.0)
[2022-07-08 05:45] LABS: Anion Gap 4 (5-15); BUN 10 mg/dL (7-18); BUN/Creat Ratio 17.4 RATIO (10-20); Calcium,Total 8.9 mg/dL (8.5-10.1); Chloride 101 mmol/L (98-107); Creatinine, Serum 0.57 mg/dL (0.55-1.02); EST Glomerular Filtration Rate 109 mL/min (>60); Est Glom Filt Rate - Afr Amer 132 mL/min (>60); Estimated Creatinine Clearance 45.96 ml/min; Glucose 125 mg/dL (74-106); Potassium 4.1 mmol/L (3.5-5.1); Sodium Level 129 mmol/L (136-145)
[2022-07-08] MEDS: Neuropathy Pain Cream Compound 60 CLICK TUBE TOPICAL ×2 (06:20→21:24)
[2022-07-08] MEDS: Gabapentin 100 MG Capsule 200 MG PO ×3 (06:23→21:23)
[2022-07-08 07:10] LABS: Bedside Glucose 115 mg/dL (74-106)
[2022-07-08 07:33] VITALS: BP 127/65; PULSE 90; RESP 16; TEMP 36.8; O2SAT 98
[2022-07-08] MEDS: Cholecalciferol (VIT D3) 25 MCG TABLET (1,000 UNITS) PO (07:48)
[2022-07-08] MEDS: Loratadine 10 MG Tablet PO (07:48)
[2022-07-08] MEDS: Lisinopril 20 MG Tablet PO ×2 (07:48→21:26)
[2022-07-08] MEDS: Magnesium Chloride 64 MG Delay Rel.Tablet 128 MG PO (07:48)
[2022-07-08] MEDS: amLODIPine 5 MG Tablet PO (07:48)
[2022-07-08] MEDS: metFORMIN HCl 500 MG Tablet PO ×2 (07:49→16:09)
[2022-07-08] MEDS: Multivitamins,Therapeutic Tablet 1 TABLET PO (07:49)
[2022-07-08] MEDS: traMADol 50 MG Tablet PO (07:51)
[2022-07-08] MEDS: Menthol/Lanolin/Calamine/Znox 113 GM Tube 1 APPLIC TOPICAL ×2 (07:56→21:23)
--- NOTE | 2022-07-08 08:30 | NURSING ---
Patient denied any s/sx of dizziness or light headedness. Patient denies any SOB. Dr Green aware of her labs.
--- NOTE | 2022-07-08 10:58 | PN_ITS ---
Subjective Subjective Afebrile VSS-resting heart rate is still in the 90s. Blood pressure is stable. Maintaining appropriate oxygen saturation on RA-95 to 98% Oral intake is fair. She is eating 50 to 74% of her meals. Yesterday she had only 900 cc in but had 2150 for fluid balance of -1250. Weight is stable Blood sugar record was reviewed and the blood sugars are well controlled with no hypoglycemia. We are now checking blood sugars twice daily, breakfast and before supper. Discussed with nursing - no problems that need addressed Reviewed the PT/OT/ST notes Medication list reviewed. Amaryl was discontinued yesterday due to a borderline low blood sugars at 4 PM. She will not be getting metformin 500 mg in the a.m. and 500 mg with supper. She is averaging only 150 mg tablet of tramadol daily for pain control. All lab from this AM was personally reviewed. Hemoglobin is 7.6 today, down from 8.4 on 07/04/2022, most likely secondary to better hydration. White blood cell count is within normal limits and platelets are also normal. Sodium is still mildly decreased at 129 and the potassium is 4.1. The BUN is 10, down from 21 on 07/05/2022. Creatinine is 0.57, down from 1.14 at admission. Objective Data Objective Data Vital Signs: Vital Signs Temp Pulse Resp BP Pulse Ox O2 Del Method 98.2 F 90 16 127/65 H 98 Room Air 07/08/22 07:33 07/08/22 07:33 07/08/22 07:33 07/08/22 07:33 07/08/22 07:33 07/08/22 07:33 Oxygen Delivery Method Room Air Weight: 132 lb 0.91 oz Body Mass Index (BMI) 26.6 Intake & Output: Intake and Output for Last 24 Hours 07/06/22 07/07/22 07/08/22 23:59 23:59 23:59 Intake Total 2300 / 2420 900 / 900 360 / 360 Output Total 1200 / 1450 2150 / 2150 950 / 950 Balance 1100 / 970 -1250 / -1250 -590 / -590 Lab / Micro Data Result Diagrams: 07/10/22 06:35 07/08/22 05:07 Labs: Laboratory Results - last 24 hr 07/07/22 16:55: POC Glucose 115 H 07/08/22 05:07: WBC 7.2, RBC 2.64 L, Hgb 7.6 L, Hct 23.0 L, MCV 87.1, MCH 28.8, MCHC 33.0, RDW Std Deviation 41.7, RDW Coeff of [place] 13.2, Plt Count 360, MPV 8.0, Immature Gran % (Auto) 1.200 H, Neut % (Auto) 59.1, Lymph % (Auto) 30.1, [place] % (Auto) 7.2, Eos % (Auto) 1.7, Baso % (Auto) 0.7, Absolute Neuts (auto) 4.3, Absolute Lymphs (auto) 2.17, Nucleated RBC % 0 07/08/22 05:07: Sodium 129 L, Potassium 4.1, Chloride 101, Carbon Dioxide 24.0, Anion Gap 4 L, BUN 10, Creatinine 0.57, Estim Creat Clear Calc 45.96, Est GFR (MDRD) Af Amer 132, Est GFR (MDRD) Non-Af 109, BUN/Creatinine Ratio 17.4, Glucose 125 H, Calcium 8.9 07/08/22 06:28: POC Glucose 115 H Physical Exam Const alert, oriented x3 and no apparent distress Constitutional Narrative: Sitting in the recliner at the bedside. General Appearance: cooperative HEENT Mouth: dry mucous membranes Resp normal respiratory effort, normal air movement and clear to auscultation bilaterally Cardio regular rate, regular rhythm and no gallops GI normal to inspection, nondistended, normoactive bowel sounds, soft to palpation and non-tender GI Narrative: No guarding with palpation Extremity no calf tenderness General Extremity: Negative for edema Skin General Skin Exam: no breakdown Rashes: no rashes Wound Narrative: The incision is intact with no dehiscence, no erythema and no DC. No significant reggie-incisional swelling. Psych thought process normal, cooperative and affect normal Appearance: appropriate Attitude: No agitated Activity / Motor Behavior: Negative for restless Assessment & Plan Assessment/Plan (1) Physical debility: (2) Radiculopathy: (3) Lumbar canal stenosis: (4) Myopathy: (5) S/P lumbar fusion: PLAN: 06/27/[address] Geiger (6) Acute blood loss as cause of postoperative anemia: PLAN: HGB is 7.6 today.......I think is likely due to better hydration......MM are not nearly as dry and she now denies lightheadedness. BUN is down to 10 from 21 and the creat is 0.57, down form 1.14. (7) Hypomagnesemia: PLAN: Magnesium is 2.3 today following supplementation. (8) Hyponatremia: PLAN: Sodium is still low. The HCTZ should be out of her system now so will check a urine sodium and creat and calculate the FENA. (9) Benign essential HTN: (10) Diabetes mellitus, type 2: PLAN: Good control (11) Osteoarthritis: (12) Osteopenia: (13) Dehydration: PLAN: Plan 1. Continue therapy 2. Recheck a H&H on Monday. 3. Hemoccult stool 4. Urine sodium and creatinine Charges/Coding Visit Charges Inpatient E&M: 85933 Subs Hosp L2
[2022-07-08 11:37] LABS: Magnesium 1.6 mg/dL (1.6-2.6); Thyroid Stim Hormone (TSH) 1.67 uIU/mL (0.358-3.74)
[2022-07-08] MEDS: Senna/Docusate Sodium 1 Tablet 2 TABLET PO ×2 (11:43→21:23)
[2022-07-08 12:35] LABS: Urine Sodium 39 mmol/L (Not Establ.)
[2022-07-08] MEDS: Magnesium Hydroxide 30 ML UDC PO (14:34)
[2022-07-08 17:10] LABS: Bedside Glucose 126 mg/dL (74-106)
[2022-07-08] MEDS: Dronabinol 2.5 MG Capsule PO (21:23)
[2022-07-08] MEDS: Niacin SA 500 MG Tablet PO (21:23)
[2022-07-08 21:30] VITALS: PULSE 90; RESP 16; O2SAT 97
[2022-07-08 22:00] VITALS: BP 124/56; PULSE 90; RESP 16; TEMP 36.7; O2SAT 97
[2022-07-09] MEDS: traMADol 50 MG Tablet PO ×2 (02:51→10:22)
[2022-07-09] MEDS: Neuropathy Pain Cream Compound 60 CLICK TUBE TOPICAL ×2 (06:35→21:09)
[2022-07-09] MEDS: Gabapentin 100 MG Capsule 200 MG PO ×3 (06:35→21:09)
[2022-07-09 07:15] LABS: Bedside Glucose 123 mg/dL (74-106)
[2022-07-09 07:47] VITALS: BP 122/69; PULSE 89; RESP 16; TEMP 36.4; O2SAT 95
[2022-07-09] MEDS: Lisinopril 20 MG Tablet PO ×2 (07:52→21:10)
[2022-07-09] MEDS: Senna/Docusate Sodium 1 Tablet 2 TABLET PO ×2 (07:52→21:09)
[2022-07-09] MEDS: Magnesium Chloride 64 MG Delay Rel.Tablet 128 MG PO (07:52)
[2022-07-09] MEDS: Loratadine 10 MG Tablet PO (07:53)
[2022-07-09] MEDS: metFORMIN HCl 500 MG Tablet PO ×2 (07:53→16:35)
[2022-07-09] MEDS: Multivitamins,Therapeutic Tablet 1 TABLET PO (07:53)
[2022-07-09] MEDS: Docusate Sodium 100 MG Capsule PO (07:55)
[2022-07-09] MEDS: amLODIPine 5 MG Tablet PO (07:56)
[2022-07-09] MEDS: Cholecalciferol (VIT D3) 25 MCG TABLET (1,000 UNITS) PO (07:57)
[2022-07-09] MEDS: Menthol/Lanolin/Calamine/Znox 113 GM Tube 1 APPLIC TOPICAL ×2 (08:00→21:10)
[2022-07-09] MEDS: Bisacodyl 10 MG Suppository RC (14:02)
[2022-07-09] MEDS: Magnesium Hydroxide 30 ML UDC PO (16:35)
[2022-07-09 17:00] LABS: Bedside Glucose 126 mg/dL (74-106)
--- NOTE | 2022-07-09 18:29 | NURSING ---
BS x4, abdomen soft rounded. R/S given with no results and MOM today. Patient is passing flatus. Denies nausea or discomfort. Will monitor.
[2022-07-09 19:14] VITALS: BP 128/52; PULSE 89; RESP 17; TEMP 36.6; O2SAT 95
[2022-07-09] MEDS: Niacin SA 500 MG Tablet PO (21:10)
[2022-07-09] MEDS: Dronabinol 2.5 MG Capsule PO (21:10)
[2022-07-10] MEDS: Gabapentin 100 MG Capsule 200 MG PO ×3 (06:27→22:34)
[2022-07-10] MEDS: Neuropathy Pain Cream Compound 60 CLICK TUBE TOPICAL ×2 (06:27→22:33)
[2022-07-10 06:59] LABS: Hematocrit 23.7 % (37-47); Hemoglobin 7.8 g/dL (12.0-15.0)
[2022-07-10 07:25] LABS: Bedside Glucose 129 mg/dL (74-106)
[2022-07-10 08:08] VITALS: BP 133/49; PULSE 86; RESP 16; TEMP 37; O2SAT 96
[2022-07-10] MEDS: traMADol 50 MG Tablet PO (08:56)
[2022-07-10] MEDS: Senna/Docusate Sodium 1 Tablet 2 TABLET PO ×2 (08:56→22:34)
[2022-07-10] MEDS: Lisinopril 20 MG Tablet PO ×2 (08:56→22:33)
[2022-07-10] MEDS: Multivitamins,Therapeutic Tablet 1 TABLET PO (08:56)
[2022-07-10] MEDS: amLODIPine 5 MG Tablet PO (08:56)
[2022-07-10] MEDS: Cholecalciferol (VIT D3) 25 MCG TABLET (1,000 UNITS) PO (08:56)
[2022-07-10] MEDS: metFORMIN HCl 500 MG Tablet PO ×2 (08:56→17:07)
[2022-07-10] MEDS: Loratadine 10 MG Tablet PO (08:56)
[2022-07-10] MEDS: Magnesium Chloride 64 MG Delay Rel.Tablet 128 MG PO (08:56)
[2022-07-10] MEDS: Polyethylene Glycol 3350 17 GM PACKET PO (08:57)
[2022-07-10] MEDS: Menthol/Lanolin/Calamine/Znox 113 GM Tube 1 APPLIC TOPICAL ×2 (09:19→22:35)
[2022-07-10 17:01] LABS: Bedside Glucose 107 mg/dL (74-106)
[2022-07-10 19:02] VITALS: BP 133/61; PULSE 91; RESP 17; TEMP 37.3; O2SAT 99
[2022-07-10] MEDS: Dronabinol 2.5 MG Capsule PO (22:35)
[2022-07-10] MEDS: Niacin SA 500 MG Tablet PO (22:35)
[2022-07-11] MEDS: Gabapentin 100 MG Capsule 200 MG PO ×3 (04:59→21:51)
[2022-07-11] MEDS: Neuropathy Pain Cream Compound 60 CLICK TUBE TOPICAL ×2 (04:59→20:28)
[2022-07-11 07:01] LABS: Bedside Glucose 216 mg/dL (74-106)
[2022-07-11 08:17] VITALS: BP 119/54; PULSE 89; RESP 16; TEMP 37.2; O2SAT 95
[2022-07-11] MEDS: Loratadine 10 MG Tablet PO (08:21)
[2022-07-11] MEDS: metFORMIN HCl 500 MG Tablet PO ×2 (08:21→16:44)
[2022-07-11] MEDS: Lisinopril 20 MG Tablet PO ×2 (08:21→21:52)
[2022-07-11] MEDS: amLODIPine 5 MG Tablet PO (08:21)
[2022-07-11] MEDS: Magnesium Chloride 64 MG Delay Rel.Tablet 128 MG PO ×2 (08:21→21:51)
[2022-07-11] MEDS: Multivitamins,Therapeutic Tablet 1 TABLET PO (08:21)
[2022-07-11] MEDS: Cholecalciferol (VIT D3) 25 MCG TABLET (1,000 UNITS) PO (08:21)
[2022-07-11] MEDS: Senna/Docusate Sodium 1 Tablet 2 TABLET PO ×2 (08:22→21:51)
[2022-07-11] MEDS: traMADol 50 MG Tablet PO (08:26)
[2022-07-11] MEDS: Menthol/Lanolin/Calamine/Znox 113 GM Tube 1 APPLIC TOPICAL ×2 (08:44→20:27)
--- NOTE | 2022-07-11 10:13 | PCM.PROGNOTE ---
Subjective Subjective Afebrile VSS-the resting heart rate is better but is still in the high 80's Maintaining appropriate oxygen saturation on RA Oral fluid intake is generally about 1100 but outputs are still exceeding intake. Fluid balance yesterday was -1358.It has been 6 days since the HCTZ was discontinued. Post obstructive diuresis? She admits to slow stream and having to sit on the toilet a long time to allow urine to flow. FENA was 0.2% and consistent with prerenal azotemia. Discussed with nursing - no problems that need addressed Reviewed the PT/OT notes Medication list reviewed. Heme stool was negative. She is sleeping well now. The radicular pain in the lateral hip area and the lateral thigh is much better. Appetite is improving. Roxie denies lightheadedness, pain, shortness of breath, cough, palpitations, calf pain, nausea/vomiting/abdominal pain and dysuria. Constipation has resolved. Objective Data Objective Data Vital Signs: Vital Signs Temp Pulse Resp BP Pulse Ox O2 Del Method 98.9 F 89 16 119/54 L 95 Room Air 07/11/22 08:17 07/11/22 08:17 07/11/22 08:17 07/11/22 08:17 07/11/22 08:17 07/11/22 08:17 Oxygen Delivery Method Room Air Weight: 132 lb 0.91 oz Body Mass Index (BMI) 26.6 Intake & Output: Intake and Output for Last 24 Hours 07/09/22 07/10/22 07/11/22 23:59 23:59 23:59 Intake Total 1240 / 1240 1100 / 1100 100 / 100 Output Total 1650 / 1650 2450 / 2450 475 / 475 Balance -410 / -410 -1350 / -1350 -375 / -375 Lab / Micro Data Result Diagrams: 07/10/22 06:35 07/08/22 05:07 Labs: Laboratory Results - last 24 hr 07/10/22 16:38: POC Glucose 107 H 07/11/22 06:38: POC Glucose 216 H Micro: Microbiology 07/10/22 08:45 Stool Stool Occult Blood (JAY) - Final Physical Exam Const alert and no apparent distress General Appearance: cooperative HEENT Mouth: dry mucous membranes Resp normal respiratory effort, no use of accessory muscles and clear to auscultation bilaterally Effort and Inspection: Negative for tachypneic or labored Cardio regular rate, regular rhythm and no gallops GI normal to inspection, nondistended, normoactive bowel sounds, non-tender and non-distended GI Narrative: no guarding with palpation Extremity Negative for no calf tenderness General Extremity: Negative for edema Skin General Skin Exam: no breakdown Rashes: no rashes Psych affect normal Assessment & Plan Assessment/Plan (1) Physical debility: (2) Radiculopathy: (3) Lumbar canal stenosis: (4) Myopathy: (5) S/P lumbar fusion: PLAN: 06/27/[address] Geiger (6) Acute blood loss as cause of postoperative anemia: (7) Hypomagnesemia: (8) Hyponatremia: (9) Benign essential HTN: (10) Diabetes mellitus, type 2: PLAN: Good control (11) Osteoarthritis: (12) Osteopenia: (13) Dehydration: PLAN: Plan 1. Continue therapy 2. 1 possibility for the urine output always exceeding the oral intake is postobstructive diuresis. I talked to Patricia again today and she is pretty sure she was retaining urine and had to bend over and strain to urinate prior to the surgery. She now has a Khan catheter. Will aggressively hydrate with normal saline today after therapy and recheck lab in the AM. Will leave the Khan catheter for 24-48 more hours since we are hydrating her and the urine output is going to increase making it difficult for her to keep up with bathroom calls. Plan to discontinue the Khan catheter Monday morning. Urine in the Khan bag is clear. 3. In addition to a BMP also check magnesium in the AM. The magnesium chloride supplement was increased to twice daily. 4. Decrease the Gabapentin to 100 mg TID........pt is on board with weaning the Gabapentin off if she does not need it. 5. Continue dronabinol for appetite stimulant. This is also helping with sleep. Charges/Coding Visit Charges Inpatient E&M: 01353 Subs Hosp L2
--- NOTE | 2022-07-11 11:52 | CASEMGMT ---
Social Work SW spoke with pt to finalize DC plans. Pt requesting outpatient therapy instead of HHC. Pt prefers [facility]. Faxed referral to [facility]. No DME needs. Pt has transport home. Plan: DC home with 07/15, [facility] LAURA VelazcoW
[2022-07-11 17:31] LABS: Bedside Glucose 100 mg/dL (74-106)
[2022-07-11 19:51] VITALS: BP 132/50; PULSE 88; RESP 16; TEMP 36.8; O2SAT 97
[2022-07-11] MEDS: 0.9% Saline Lock 10 ML Syringe IV (20:31)
[2022-07-11] MEDS: Dronabinol 2.5 MG Capsule PO (21:52)
[2022-07-11] MEDS: Niacin SA 500 MG Tablet PO (21:52)
[2022-07-11] MEDS: 0.9% Normal Saline 1,000 ML 125 ML IV (23:57)
[2022-07-12] MEDS: Gabapentin 100 MG Capsule 200 MG PO ×3 (06:14→21:05)
[2022-07-12] MEDS: Neuropathy Pain Cream Compound 60 CLICK TUBE TOPICAL ×2 (06:16→21:04)
[2022-07-12 06:24] LABS: Anion Gap 4 (5-15); BUN 7 mg/dL (7-18); BUN/Creat Ratio 12.2 RATIO (10-20); Calcium,Total 8.9 mg/dL (8.5-10.1); Chloride 103 mmol/L (98-107); Creatinine, Serum 0.57 mg/dL (0.55-1.02); EST Glomerular Filtration Rate 109 mL/min (>60); Est Glom Filt Rate - Afr Amer 132 mL/min (>60); Estimated Creatinine Clearance 45.96 ml/min; Glucose 145 mg/dL (74-106); Potassium 4.5 mmol/L (3.5-5.1); Sodium Level 130 mmol/L (136-145)
[2022-07-12 06:51] LABS: Bedside Glucose 138 mg/dL (74-106)
[2022-07-12 07:25] VITALS: BP 125/62; PULSE 90; RESP 16; TEMP 36.8; O2SAT 98
[2022-07-12] MEDS: metFORMIN HCl 500 MG Tablet PO ×2 (08:09→17:09)
[2022-07-12] MEDS: Menthol/Lanolin/Calamine/Znox 113 GM Tube 1 APPLIC TOPICAL ×2 (08:09→21:06)
[2022-07-12] MEDS: Multivitamins,Therapeutic Tablet 1 TABLET PO (08:09)
[2022-07-12] MEDS: Magnesium Chloride 64 MG Delay Rel.Tablet 128 MG PO ×2 (08:10→21:05)
[2022-07-12] MEDS: Loratadine 10 MG Tablet PO (08:10)
[2022-07-12] MEDS: Senna/Docusate Sodium 1 Tablet 2 TABLET PO ×2 (08:10→21:06)
[2022-07-12] MEDS: Cholecalciferol (VIT D3) 25 MCG TABLET (1,000 UNITS) PO (08:10)
[2022-07-12] MEDS: amLODIPine 5 MG Tablet PO (08:11)
[2022-07-12] MEDS: Lisinopril 20 MG Tablet PO ×2 (08:11→21:05)
[2022-07-12] MEDS: traMADol 50 MG Tablet PO ×2 (08:16→21:05)
--- NOTE | 2022-07-12 11:14 | PCM.PN.BLA ---
Progress Note Afebrile VSS Maintaining appropriate oxygen saturation on RA Oral intake -fluid balance yesterday was -75. Overnight she continued to diurese and had 150 in and 1565 out for a balance of -1415. Has not been weighed since the . Will wait today and order daily weights. Discussed with nursing - no problems that need addressed Reviewed the PT/OT notes Medication list reviewed. All lab from this AM was personally reviewed. Sodium is up to 138 and the potassium is 4.5. BUN is 7 with a creatinine of 0.57. Magnesium is 2. Sleeping well at night and the appetite has improved. She denies calf pain, shortness of breath, chest pain, dysuria, lightheadedness, palpitations and dyspnea on exertion. Physical Exam Const alert and no apparent distress General Appearance: cooperative HEENT moist oral mucous membranes Resp normal respiratory effort, no use of accessory muscles and clear to auscultation bilaterally Effort and Inspection: Negative for tachypneic or labored Cardio regular rate, regular rhythm and no gallops GI normal to inspection, nondistended, normoactive bowel sounds, non-tender and non-distended GI Narrative: no guarding with palpation Extremity Negative for no calf tenderness General Extremity: Negative for edema Skin Skin Narrative: The incision is intact with no dehiscence. There is no reggie-incisional erythema and no discharge from the incision. General Skin Exam: no breakdown Rashes: no rashes Psych affect normal Assessment & Plan Assessment/Plan (1) Physical debility: PLAN: Due to recent Lumbar surgery for spinal canal stenosis (2) Radiculopathy: (3) Lumbar canal stenosis: (4) Myopathy: (5) S/P lumbar fusion: PLAN: 06/27/[address] Geiger (6) Acute blood loss as cause of postoperative anemia: PLAN: HGB is stable at 7.8 and hemoccult stool was negative. (7) Hypomagnesemia: PLAN: Resolved and she is now on a supplement. (8) Hyponatremia: PLAN: AM cortisol and TSH are normal. FENA 0.2% which is consistent with prerenal azotemia. Sodium did not correct with IV saline and rehydration. I suspect the low sodium may be due to Lisinopril. It is stable at 130 and she is asymptomatic. (9) Benign essential HTN: PLAN: Well controlled. (10) Diabetes mellitus, type 2: PLAN: Good control. Hemoglobin A1c on 07/04/2022 is 6. Blood sugars were low on a carb controlled diet and Amaryl + metformin. Amaryl was discontinued and at discharge she is taking Metformin 500 mg BID and BS's are well controlled. (11) Osteoarthritis: (12) Osteopenia: (13) Dehydration: (14) Urine retention: PLAN: Had a Khan for approximately 1 week in rehab. UA was normal and no UTI while in rehab. PLAN: Plan 1. Discharge home tomorrow 2. Will have PT/OT at [facility] post discharge 3. Prescriptions were called to [facility] [place] in [place] 4. Appointments have been made with Dr. Aragon, Dr. Gimenez and Dr. Clifford. Visit Charges Inpatient E&M: 94421 Subs Hosp L2
[2022-07-12] MEDS: 0.9% Normal Saline 1,000 ML 125 ML IV ×2 (14:45→22:43)
[2022-07-12] MEDS: 0.9% Saline Lock 10 ML Syringe IV (14:45)
[2022-07-12 16:45] LABS: Bedside Glucose 119 mg/dL (74-106)
[2022-07-12 20:31] VITALS: BP 135/65; PULSE 87; RESP 16; TEMP 36.6; O2SAT 97
[2022-07-12] MEDS: Dronabinol 2.5 MG Capsule PO (21:05)
[2022-07-12] MEDS: Niacin SA 500 MG Tablet PO (21:07)
[2022-07-13 06:00] VITALS: BMI 25.7
[2022-07-13] MEDS: Neuropathy Pain Cream Compound 60 CLICK TUBE TOPICAL ×2 (06:15→21:40)
[2022-07-13] MEDS: Gabapentin 100 MG Capsule 200 MG PO ×3 (06:15→21:46)
--- NOTE | 2022-07-13 06:30 | NURSING ---
Pts lynn was removed per Doctors order. Patient tolerated well and no complaints of any pain.
[2022-07-13 06:35] LABS: Anion Gap 2 (5-15); BUN 6 mg/dL (7-18); BUN/Creat Ratio 8.9 RATIO (10-20); Calcium,Total 8.6 mg/dL (8.5-10.1); Chloride 104 mmol/L (98-107); Creatinine, Serum 0.67 mg/dL (0.55-1.02); EST Glomerular Filtration Rate 91 mL/min (>60); Est Glom Filt Rate - Afr Amer 110 mL/min (>60); Estimated Creatinine Clearance 45.96 ml/min; Glucose 133 mg/dL (74-106); Potassium 4.5 mmol/L (3.5-5.1); Sodium Level 130 mmol/L (136-145)
[2022-07-13 06:40] LABS: Bedside Glucose 123 mg/dL (74-106)
[2022-07-13 08:16] VITALS: BP 115/56; PULSE 81; RESP 16; TEMP 36.7; O2SAT 96
[2022-07-13] MEDS: Senna/Docusate Sodium 1 Tablet 2 TABLET PO ×2 (08:26→21:37)
[2022-07-13] MEDS: Cholecalciferol (VIT D3) 25 MCG TABLET (1,000 UNITS) PO (08:26)
[2022-07-13] MEDS: amLODIPine 5 MG Tablet PO (08:26)
[2022-07-13] MEDS: Loratadine 10 MG Tablet PO (08:27)
[2022-07-13] MEDS: Docusate Sodium 100 MG Capsule PO (08:27)
[2022-07-13] MEDS: Magnesium Chloride 64 MG Delay Rel.Tablet 128 MG PO ×2 (08:27→21:38)
[2022-07-13] MEDS: Lisinopril 20 MG Tablet PO ×2 (08:27→21:37)
[2022-07-13] MEDS: metFORMIN HCl 500 MG Tablet PO ×2 (08:27→18:13)
[2022-07-13] MEDS: Multivitamins,Therapeutic Tablet 1 TABLET PO (08:27)
[2022-07-13] MEDS: Menthol/Lanolin/Calamine/Znox 113 GM Tube 1 APPLIC TOPICAL ×2 (08:29→22:25)
[2022-07-13] MEDS: traMADol 50 MG Tablet PO (08:39)
[2022-07-13] MEDS: 0.9% Normal Saline 1,000 ML 125 ML IV (08:49)
[2022-07-13 17:30] LABS: Bedside Glucose 106 mg/dL (74-106)
[2022-07-13 19:00] VITALS: BP 134/67; PULSE 87; RESP 16; TEMP 37.1; O2SAT 97
[2022-07-13 21:29] VITALS: BP 138/66; PULSE 93
[2022-07-13] MEDS: 0.9% Saline Lock 10 ML Syringe IV (21:35)
[2022-07-13] MEDS: Niacin SA 500 MG Tablet PO (21:38)
[2022-07-13] MEDS: Dronabinol 2.5 MG Capsule PO (21:38)
[2022-07-14] MEDS: Gabapentin 100 MG Capsule 200 MG PO ×3 (05:27→21:29)
[2022-07-14] MEDS: Neuropathy Pain Cream Compound 60 CLICK TUBE TOPICAL ×2 (05:29→21:30)
[2022-07-14] MEDS: traMADol 50 MG Tablet PO (06:41)
[2022-07-14 07:31] LABS: Bedside Glucose 137 mg/dL (74-106)
[2022-07-14 08:00] VITALS: BMI 25.8
[2022-07-14] MEDS: Cholecalciferol (VIT D3) 25 MCG TABLET (1,000 UNITS) PO (08:48)
[2022-07-14] MEDS: Lisinopril 20 MG Tablet PO ×2 (08:48→21:29)
[2022-07-14] MEDS: metFORMIN HCl 500 MG Tablet PO ×2 (08:48→17:43)
[2022-07-14] MEDS: amLODIPine 5 MG Tablet PO (08:48)
[2022-07-14] MEDS: Multivitamins,Therapeutic Tablet 1 TABLET PO (08:48)
[2022-07-14] MEDS: Magnesium Chloride 64 MG Delay Rel.Tablet 128 MG PO ×2 (08:48→21:28)
[2022-07-14] MEDS: Loratadine 10 MG Tablet PO (08:49)
[2022-07-14] MEDS: Menthol/Lanolin/Calamine/Znox 113 GM Tube 1 APPLIC TOPICAL ×2 (08:49→21:28)
[2022-07-14 09:06] VITALS: BP 132/57; PULSE 92; RESP 16; TEMP 36.1; O2SAT 95
--- NOTE | 2022-07-14 13:21 | CASEMGMT ---
Social Work IDT met with patient for Team meeting. Discussed patient's progress in PT/OT/SN. Confirmed DC home with 07/15 with [facility]. No other issues. Ayanna Dominguez, [employer] [facility] TECHNICIAN
[2022-07-14 16:45] LABS: Bedside Glucose 116 mg/dL (74-106)
[2022-07-14 19:17] VITALS: BP 131/58; PULSE 91; RESP 18; TEMP 37.1; O2SAT 96
[2022-07-14] MEDS: Dronabinol 2.5 MG Capsule PO (21:28)
[2022-07-14] MEDS: Senna/Docusate Sodium 1 Tablet 2 TABLET PO (21:29)
[2022-07-14] MEDS: Niacin SA 500 MG Tablet PO (21:30)
[2022-07-15] MEDS: 0.9% Saline Lock 10 ML Syringe IV (01:32)
--- NOTE | 2022-07-15 02:22 | NURSING ---
REVIEWED AND AGREE WITH Jing RUIZ, DOCUMENTATION AND ASSESSMENT CHARTING.
[2022-07-15] MEDS: Gabapentin 100 MG Capsule 200 MG PO (05:19)
[2022-07-15] MEDS: Neuropathy Pain Cream Compound 60 CLICK TUBE TOPICAL (05:19)
[2022-07-15 07:05] LABS: Bedside Glucose 151 mg/dL (74-106)
[2022-07-15 07:44] VITALS: BP 118/47; PULSE 90; RESP 16; TEMP 36.9; O2SAT 94
[2022-07-15 07:45] VITALS: BMI 25.8
[2022-07-15] MEDS: amLODIPine 5 MG Tablet PO (07:58)
[2022-07-15] MEDS: Multivitamins,Therapeutic Tablet 1 TABLET PO (07:58)
[2022-07-15] MEDS: Lisinopril 20 MG Tablet PO (07:58)
[2022-07-15] MEDS: Loratadine 10 MG Tablet PO (07:58)
[2022-07-15] MEDS: Cholecalciferol (VIT D3) 25 MCG TABLET (1,000 UNITS) PO (07:58)
[2022-07-15] MEDS: Magnesium Chloride 64 MG Delay Rel.Tablet 128 MG PO (07:58)
[2022-07-15] MEDS: metFORMIN HCl 500 MG Tablet PO (07:58)
[2022-07-15] MEDS: Menthol/Lanolin/Calamine/Znox 113 GM Tube 1 APPLIC TOPICAL (08:00)
--- NOTE | 2022-07-15 09:34 | DCINST_ITS ---
Discharge Instructions Diet Discharge Diet: - (Carbohydrate controlled) Activity Discharge Activity: May Not Drive, May Shower and Use Walker Weight Bearing Status: Full weight bearing Dressing / Incision Call your doctor if your incision/area has: Continuous Slow Oozing, Sudden Increased Bleeding, Increased Pain/ Swelling, Increased Redness, Foul Smelling Discharge, Swelling at the incision site and - (Have your check the incision daily until you see the surgeon. ) Call your doctor if you observe: Fever of 101 or Higher, Numbness or Tingling (New numbness or tingling in your legs. ), Inability to urinate, Shortness of breath, Dizziness, Fainting spells, Swelling in the ankles, Chest pain, Increased palpitations (irregular heartbeat), Calf discomfort and Uncontrolled pain Suture Line Care: Avoid Pulling/Pushing and Avoid Pinching/Bending Cleanse incision/area with: Soap & Water Follow Up Care Please Follow Up With: Yoli Gimenez MD When: within 7-10 days Test Results: Test results from this visit will be discussed in further detail at your follow- up appointment, if applicable. Pending Tests Upon Discharge: none Discharge Plan Admission Admit Date/Time: 07/03/22 12:21 Primary Reason for Your Visit: debility post lumbar fusion Attending Provider: Kyara Green Primary Care Provider: Yoli Gimenez Instructions Patient Instructions: Anemia, Caring for Your Incision Additional Instructions / Restrictions: 1. You have made excellent progress in therapy and I think you will continue to improve at home. Be careful NOT to overdue. If you try to do too much you will have more pain and then you will not want to move. When you don't do your exercises daily you will lose strength and then you will have a set back. Make your self a priority and make exercise a priority and your recovery will be much smoother. 2. Your sodium in your blood is low. Normal is 135-145 and your is stable at 130. You have no symptoms with this mild decrease. We have checked your thyroid and your adrenal gland (both can cause low sodium) and they are fine. We have hydrated you and your sodium is still low. Lisinopril can cause low sodium. You are currently taking 20 mg Twice a day of Lisinopril. I did not want to change the medication and then you home a day or 2 later so I am going to defer making changes to Dr. Gimenez. Your BP is well controlled but you resting heart rate is in the high 80's and low 90's and I would like to see this a little lower. Dr. Gimenez may want to try backing off on the Lisinopril and adding something for high blood pressure that also lowers the heart rate. I nevin l be sending Dr. Gimenez a copy of your discharge summary. 3. You lost some blood from the surgery and you are anemic. Your bone marrow will work at increasing the blood count but, this takes some time. While you are still anemic you may fatigue more easily than normal and you may have some shortness of breath, rafia with exertion. Pace your self. If you are getting short of breath at rest or you have any chest pain call Dr. Gimenez and tell her what is going on OR go to the ER. 4. I decreased the Gabapentin from 300 mg 3 times a day to 200 mg 3 times a day. You may be able to decrease this even further since the nerve compression should be better after the surgery. This drug can cause confusion and lightheadedness and is associated with increased falls as we get older. If you can get off it that would be good. 5. I have given you some Tramadol to have at home for pain that is not relieved with Tylenol. Try Tylenol first and if this is not effective take a Tramadol 6. You have done amazingly well after your surgery! It has been a pleasure getting to know you and we have all enjoyed your company for the past 2 weeks. TAke care of yourself and if you have any questions after you go home please do not hesitate to call me. OFFICE: [phone] CELL: [phone] Discharge Orders/Prescriptions Prescriptions: New metformin 500 mg Tablet 500 mg PO BIDCM Qty: 60 0RF sennosides-docusate sodium [Stool Softener-Stimulant Laxat] 8.6-50 mg Tablet 2 tab PO BID Qty: 120 0RF gabapentin 100 mg Capsule 200 mg PO TID Qty: 90 0RF Mag 64 64 mg Tablet,Delayed Release (Dr/Ec) 128 mg PO BID Qty: 60 0RF tramadol 50 mg Tablet 50 mg PO Q6H PRN PRN (Reason: Pain Score 4-10) Qty: 28 0RF cholecalciferol (vitamin D3) 25 mcg (1,000 unit) Tablet 25 mcg PO DAILY Qty: 30 0RF Continued niacin 500 MG tablet extended release 24 hr 500 mg PO QHS omega-3 fatty acids-fish oil 1 EACH capsule 1 ea PO DAILY Chondroitin Sulfate 1 tab PO DAILY multivitamin Tablet 1 tab PO DAILY glucosamine sulfate [Glucosamine] 500 mg Tablet 500 mg PO BID Rx Instructions: administer with meals fexofenadine 180 mg Tablet 180 mg PO DAILY amlodipine 5 mg Tablet 5 mg PO DAILY glimepiride 1 mg Tablet 1 mg PO DAILY docusate sodium 100 mg Capsule 100 mg PO QODAY Discontinued lisinopril 10 MG tablet 20 mg PO BID metformin 500 MG tablet 500 mg PO DINNER oxycodone-acetaminophen [Percocet] 5-325 mg Tablet 1 tab PO Q6H PRN (Reason: Pain 1-10) gabapentin 300 mg Capsule 300 mg PO TID Calcium + Vitamin D 600 mg calcium- 200 unit Tablet 1 tab PO DAILY cyclobenzaprine 5 mg Tablet 5 - 10 mg PO TID PRN (Reason: Muscle spasms) Referrals / Follow Up: Raymundo Aragon MD [Non-Staff] - 07/18/22 8:40 am (F/U ) Yoli Gimenez MD [Primary Care Provider] - 07/22/22 10:20 am Carlos Manuel Clifford MD [Non-Staff] - 08/23/22 1:20 pm Disposition Disposition (needs filled in before D/C Order can be placed): Home, Self Care
--- NOTE | 2022-07-15 10:25 | PCM.DC.SUM ---
Providers Date of Admission: 07/03/22 Date of Discharge: 07/15/22 Primary Care Physician: Dr. Yoli Gimenez MD Reason For Visit: LAMINECTOMY Diagnosis Discharge Diagnosis (1) Physical debility: Status: Acute Code(s): R53.81 - Other malaise Plan: Due to recent Lumbar surgery for spinal canal stenosis (2) Radiculopathy: Status: Chronic Code(s): M54.10 - Radiculopathy, site unspecified (3) Lumbar canal stenosis: Status: Chronic Code(s): M48.061 - Spinal stenosis, lumbar region without neurogenic claudication (4) Myopathy: Status: Acute Code(s): G72.9 - Myopathy, unspecified (5) S/P lumbar fusion: Status: Acute Code(s): Z98.1 - Arthrodesis status Plan: 06/27/[address] Geiger (6) Acute blood loss as cause of postoperative anemia: Status: Acute Code(s): D62 - Acute posthemorrhagic anemia Plan: HGB is stable at 7.8 and hemoccult stool was negative. (7) Hypomagnesemia: Status: Resolved Code(s): E83.42 - Hypomagnesemia Plan: Resolved and she is now on a supplement. (8) Hyponatremia: Status: Acute Code(s): E87.1 - Hypo-osmolality and hyponatremia Plan: AM cortisol and TSH are normal. FENA 0.2% which is consistent with prerenal azotemia. Sodium did not correct with IV saline and rehydration. I suspect the low sodium may be due to Lisinopril. It is stable at 130 and she is asymptomatic. (9) Benign essential HTN: Status: Chronic Code(s): I10 - Essential (primary) hypertension Plan: Well controlled. (10) Diabetes mellitus, type 2: Status: Chronic Code(s): E11.9 - Type 2 diabetes mellitus without complications Plan: Good control. Hemoglobin A1c on 07/04/2022 is 6. Blood sugars were low on a carb controlled diet and Amaryl + metformin. Amaryl was discontinued and at discharge she is taking Metformin 500 mg BID and BS's are well controlled. (11) Osteoarthritis: Status: Chronic Code(s): M19.90 - Unspecified osteoarthritis, unspecified site (12) Osteopenia: Status: Chronic Code(s): M85.80 - Other specified disorders of bone density and structure, unspecified site (13) Dehydration: Status: Resolved Code(s): E86.0 - Dehydration (14) Urine retention: Status: Resolved Code(s): R33.9 - Retention of urine, unspecified Plan: Had a Khan for approximately 1 week in rehab. UA was normal and no UTI while in rehab. Plan 1. Discharge home. 2. She will have outpatient PT/OT at [facility] post discharge 3. Follow-up appointments have been scheduled with Dr. Aragon, Dr. Gimenez and Dr. Clifford. Medications at Discharge Home Medications Chondroitin Sulfate 1 tab PO DAILY 02/28/13 niacin 500 mg tablet,extended release 24 hr 500 mg PO QHS Supplement 02/28/13 omega-3 fatty acids-fish oil 360 mg-1,200 mg capsule 1 ea PO DAILY Supplement 02/28/13 amlodipine 5 mg tablet 5 mg PO DAILY BP 07/03/22 docusate sodium 100 mg capsule 100 mg PO QODAY Constipation 07/03/22 fexofenadine 180 mg tablet 180 mg PO DAILY Allergies 07/03/22 glucosamine sulfate 500 mg tablet (Glucosamine) 500 mg PO BID Supplement 07/03/22 multivitamin 1 tab PO DAILY Supplement 07/03/22 cholecalciferol (vitamin D3) 25 mcg (1,000 unit) tablet 25 mcg PO DAILY #30 tabs 07/15/22 gabapentin 100 mg capsule 200 mg PO TID #90 caps 07/15/22 lisinopril 10 mg tablet 10 mg PO BID #120 tabs 07/15/22 magnesium chloride 64 mg (magnesium chloride) tablet,delayed release (Mag 64) 128 mg PO BID #60 tabs 07/15/22 metformin 500 mg tablet 500 mg PO BIDCM #60 tabs 07/15/22 sennosides 8.6 mg-docusate sodium 50 mg tablet (Stool Softener-Stimulant Laxative) 2 tab PO BID #120 tabs 07/15/22 tramadol 50 mg tablet 50 mg PO Q6H PRN PRN Pain Score 4-10 #28 tabs 07/15/22 Hospital Course Operations - (Lumbar laminectomy and fusion with removal of hardware on 06/27/[address] Raymundo Aragon) Procedures None Summary of Care Provided Minutes Spent on Discharge: 40 Hospital Course: PATRICIA AUGUSTIN, is a 76 YO F with a PMH of hypertension, diabetes mellitus type 2, lumbar radiculopathy with myelopathy, lumbar canal stenosis, left anterior hemiblock, osteopenia and osteoarthritis who underwent a lumbar laminectomy and fusion with removal of hardware on 06/27/[address] Aragon.? She was seen by PT/OT post operatively and recommendation was made for acute rehab.? Patricia was admitted to the acute inpt rehab unit at [facility] on 07/01/22 for 3 hours of therapy daily to restore function/independence at or near her level prior to surgery.? Prior to the surgery Patricia had a pharmacologic stress test at [facility] that was negative for ischemia. BUN was 20 at admission to rehab with a creatinine elevated at 1.14. The BUN/creatinine ratio was elevated. Sodium was 128. FENA was low at 0.2% and this is consistent with pre-renal azotemia. HCTZ was discontinued. She was hydrated with IV NS and the creat came down and so did the BUN but, the sodium remained low at 129. Am cortisol was normal at 12 and the TSH was also normal. I suspected the low sodium may be due to Lisinopril. At discharge her sodium is stable at 130 and she is asymptomatic. I did not change the lisinopril dose because she was going home in 2 days. Change deferred to Dr. Gimenez. She was not discharged on HCTZ. HGB at admission was 8.4 and following hydration it dropped to 7.6. A hemoccult stool was negative. It is stable at 7.8 and she has no SOB and no CP and has good energy. Mag was 1.4 at admission and she was placed on a MAG supplement. Mag at IN is 2.0. At admission Andria told me she had been taking 1,000 mg of Metformin in the AM and 500 mg with supper and Amaryl 1 mg daily. Her HGBA1C was 6. AM blood sugars were low and we discontinued the Amaryl and continued Metformin 500 mg BID and BS's are well controlled at discharge with no hypoglycemia. Mignon did very well in therapy. Prior to DC she was able to do 9 sit to stands from standard chair using her upper extremities to push up. She has ambulated up to 326 feet with a front wheeled walker on various surfaces independently. She is able to ascend/descend 8 standard steps with 2 handrails at supervision. She is independent with all activities of daily living however she should have supervision with tub/shower transfer for at least 1 to 2 weeks postdischarge. She is able to apply her back brace with no assistance needed. She understands and can recite her back restrictions which are no bending, no lifting greater than 10 pounds and no twisting. Mignon has follow-up appointment scheduled with Dr. Gimenez, Dr. Aragon and Dr. Clifford. She will continue with PT/OT at [facility] post discharge. Physical Exam Const alert, oriented x3 and no apparent distress General Appearance: comfortable HEENT moist oral mucous membranes Eyes PERRL, EOMs intact bilaterally, conjunctivae normal and no scleral icterus General Eye: normal appearance of both eyes and normal light reflex Neck no lymphadenopathy, supple, no JVD and no carotid bruits General: trachea midline Chest Chest: symmetrical chest wall rise Resp normal respiratory effort, normal air movement, no use of accessory muscles and clear to auscultation bilaterally Resp Narrative: Persistent coarse crackles in the R base.....the crackles in the left base have resolved. Effort and Inspection: able to speak in complete sentences; Negative for tachypneic or labored Cardio regular rate, regular rhythm, S1 normal heart sound, S2 normal heart sound, no murmurs, no rub and no gallops Cardio Narrative: Resting heart rate ranges from 85-99. I suspect this is related to the anemia. She denies palpitations and has no chest pain or shortness of breath. GI normal to inspection, nondistended, normoactive bowel sounds, soft to palpation, non-tender and non-distended GI Narrative: no guarding with palpation Back/Spine Back/Spine Narrative: She tells me that her back is not hurting at this time. She has only had 1 Hydrocodone since admission to rehab and that was this AM. Extremity normal capillary refill and no clubbing, cyanosis or edema; Negative for no calf tenderness General Extremity: Negative for edema Skin Skin Narrative: The incision is intact and there is no reggie-incisional erythema or discharge from the wound. General Skin Exam: no breakdown Rashes: no rashes Wound Narrative: The incision is intact with no dehiscence, no erythema and no DC. No significant reggie-incisional swelling. She is seeing Dr. Aragon on Monday to remove the stephon. Neuro oriented x3, CN's II-XII intact bilaterally, no focal motor deficits and no sensory deficits noted Neuro Narrative: Strength in the legs has improved. The RLE is still a little weaker than the Left. She has no radicular pain in either leg. Urine retention has resolved and the Khan catheter was discontinued. Psych thought process normal, cooperative and affect normal Psych Narrative: Appropriate, making good eye contact. Able to stay on topic and focus. No flight of ideas. Does not appear anxious or depressed. Conversant and relating well to staff. Appearance: appropriate Attitude: No agitated Activity / Motor Behavior: Negative for restless Weight / BMI Weight Weight: 128 lb 1.417 oz Body Mass Index (BMI) 25.8 ABG / Lab / Microbiology Data Result Diagrams: 07/10/22 06:35 07/13/22 05:34 Laboratory: Laboratory Results - last 24 hr 07/14/22 16:18: POC Glucose 116 H 07/15/22 06:39: POC Glucose 151 H Microbiology: Microbiology 07/10/22 08:45 Stool Stool Occult Blood (JAY) - Final D/C Instructions Discharge Diet: - (Carbohydrate controlled) Weight Bearing Status: Full weight bearing Call your doctor if your incision/area has: Continuous Slow Oozing, Sudden Increased Bleeding, Increased Pain/ Swelling, Increased Redness, Foul Smelling Discharge, Swelling at the incision site and - (Have your check the incision daily until you see the surgeon. ) Call your doctor if you observe: Fever of 101 or Higher, Numbness or Tingling (New numbness or tingling in your legs. ), Inability to urinate, Shortness of breath, Dizziness, Fainting spells, Swelling in the ankles, Chest pain, Increased palpitations (irregular heartbeat), Calf discomfort and Uncontrolled pain Suture Line Care: Avoid Pulling/Pushing and Avoid Pinching/Bending Cleanse incision/area with: Soap & Water Pending Tests Upon Discharge: none Please Follow Up With: Yoli Gimenez MD When: within 7-10 days Meaningful Use Info Meaningful Use Diagnoses (Choose all that apply): None applicable Discharge Plan Admission Admit Date/Time: 07/03/22 12:21 Primary Reason for Your Visit: debility post lumbar fusion Attending Provider: Kyara Green Primary Care Provider: Yoli Gimenez Instructions Patient Instructions: Anemia, Caring for Your Incision Additional Instructions / Restrictions: 1. You have made excellent progress in therapy and I think you will continue to improve at home. Be careful NOT to overdue. If you try to do too much you will have more pain and then you will not want to move. When you don't do your exercises daily you will lose strength and then you will have a set back. Make your self a priority and make exercise a priority and your recovery will be much smoother. 2. Your sodium in your blood is low. Normal is 135-145 and your is stable at 130. You have no symptoms with this mild decrease. We have checked your thyroid and your adrenal gland (both can cause low sodium) and they are fine. We have hydrated you and your sodium is still low. Lisinopril can cause low sodium. You are currently taking 20 mg Twice a day of Lisinopril. I did not want to change the medication and then you home a day or 2 later so I am going to defer making changes to Dr. Gimenez. Your BP is well controlled but you resting heart rate is in the high 80's and low 90's and I would like to see this a little lower. Dr. Gimenez may want to try backing off on the Lisinopril and adding something for high blood pressure that also lowers the heart rate. I will be sending Dr. Gimenez a copy of your discharge summary. 3. You lost some blood from the surgery and you are anemic. Your bone marrow will work at increasing the blood count but, this takes some time. While you are still anemic you may fatigue more easily than normal and you may have some shortness of breath, rafia with exertion. Pace your self. If you are getting short of breath at rest or you have any chest pain call Dr. Gimenez and tell her what is going on OR go to the ER. 4. I decreased the Gabapentin from 300 mg 3 times a day to 200 mg 3 times a day. You may be able to decrease this even further since the nerve compression should be better after the surgery. This drug can cause confusion and lightheadedness and is associated with increased falls as we get older. If you can get off it that would be good. 5. I have given you some Tramadol to have at home for pain that is not relieved with Tylenol. Try Tylenol first and if this is not effective take a Tramadol 6. You have done amazingly well after your surgery! It has been a pleasure getting to know you and we have all enjoyed your company for the past 2 weeks. TAke care of yourself and if you have any questions after you go home please do not hesitate to call me. OFFICE: [phone] CELL: [phone] Discharge Orders/Prescriptions Prescriptions: New metformin 500 mg Tablet 500 mg PO BIDCM Qty: 60 0RF sennosides-docusate sodium [Stool Softener-Stimulant Laxat] 8.6-50 mg Tablet 2 tab PO BID Qty: 120 0RF gabapentin 100 mg Capsule 200 mg PO TID Qty: 90 0RF Mag 64 64 mg Tablet,Delayed Release (Dr/Ec) 128 mg PO BID Qty: 60 0RF tramadol 50 mg Tablet 50 mg PO Q6H PRN PRN (Reason: Pain Score 4-10) Qty: 28 0RF cholecalciferol (vitamin D3) 25 mcg (1,000 unit) Tablet 25 mcg PO DAILY Qty: 30 0RF lisinopril 10 mg tablet 10 mg PO BID Qty: 120 0RF Continued niacin 500 MG tablet extended release 24 hr 500 mg PO QHS omega-3 fatty acids-fish oil 1 EACH capsule 1 ea PO DAILY Chondroitin Sulfate 1 tab PO DAILY multivitamin Tablet 1 tab PO DAILY glucosamine sulfate [Glucosamine] 500 mg Tablet 500 mg PO BID Rx Instructions: administer with meals fexofenadine 180 mg Tablet 180 mg PO DAILY amlodipine 5 mg Tablet 5 mg PO DAILY docusate sodium 100 mg Capsule 100 mg PO QODAY Discontinued lisinopril 10 MG tablet 20 mg PO BID metformin 500 MG tablet 500 mg PO DINNER oxycodone-acetaminophen [Percocet] 5-325 mg Tablet 1 tab PO Q6H PRN (Reason: Pain 1-10) glimepiride 1 mg Tablet 1 mg PO DAILY gabapentin 300 mg Capsule 300 mg PO TID Calcium + Vitamin D 600 mg calcium- 200 unit Tablet 1 tab PO DAILY cyclobenzaprine 5 mg Tablet 5 - 10 mg PO TID PRN (Reason: Muscle spasms) Referrals / Follow Up: Ehrler,Raymundo M, MD [Non-Staff] - 07/18/22 8:40 am (F/U ) Yoli Gimenez MD [Primary Care Provider] - 07/22/22 10:20 am Carlos Manuel Clifford MD [Non-Staff] - 08/23/22 1:20 pm Disposition Disposition (needs filled in before D/C Order can be placed): Home, Self Care Charges/Coding Visit Charges Inpatient E&M: 96797 Disch Hosp >30min
[2022-07-15 13:47] VITALS: BP 118/47; PULSE 90; RESP 16; TEMP 36.9; O2SAT 94
--- NOTE | 2022-07-15 13:48 | NURSING ---
discharge home with friend. discharge instructions, medications, and appointments reviewed with pt. denies questions or concerns
== END 2022-07-15 13:49 | disposition home or self-care (01) | DRG 560 ==
PROVIDERS: Admitting Provider Internal Medicine; PCP Internal Medicine; Visit Provider Internal Medicine
DX: Z47.89 Encounter for other orthopedic aftercare (principal); E87.1 Hypo-osmolality and hyponatremia; D62 Acute posthemorrhagic anemia; E11.40 Type 2 diabetes mellitus with diabetic neuropathy, unspecified; I10 Essential (primary) hypertension; M19.90 Unspecified osteoarthritis, unspecified site; M48.061 Spinal stenosis, lumbar region without neurogenic claudication; M54.16 Radiculopathy, lumbar region; R33.9 Retention of urine, unspecified; Z98.1 Arthrodesis status; Z79.84 Long term (current) use of oral hypoglycemic drugs; Z79.899 Other long term (current) drug therapy
CPT/HCPCS: 36415; 80048; 80053; 81001; 82274; 82306; 82533; 82570; 82962; 83036; 83735; 84100; 84300; 84443; 85014; 85018; 85025; 94668; 97110; 97112; 97116; 97162; 97166; 97530; 97535; 97802; J7030; J7040; A4216

== ENCOUNTER → 2022-07-27 | Outpatient (CLI) | payer MEDICARE, OTHER, SELFPAY ==
[2022-07-27 17:24] LABS: Absolute Lymphocyte Count 3.29 X10^3/uL (0.83-4.51); Absolute Neutrophil Count 4.5 X10^3/uL (2.0-7.7); Basophil# 0.04 X10^3/uL; Basophil% 0.5 % (0-1); Eosinophil# 0.09 X10^3/uL; Hematocrit 34.5 % (37-47); Hemoglobin 11.1 g/dL (12.0-15.0); Lymphocyte # 3.29 X10^3/ul (0.83-4.51); Lymphocyte % 37.4 % (19-41); Mean Corp Hgb Conc 32.2 g/dL (32-36); Mean Corpuscular Hgb 28.2 pg (27.0-32.0); Mean Corpuscular Volume 87.6 fL (81-99); Mean Platelet Vol. 8.6 fl (6.2-12.0); Monocyte% 9.1 % (0-10); NRBC Flagged by Analyzer 0 % (0-5); Neutrophil # 4.53 X10^3/uL (2.7-7.7); Neutrophil % 51.5 % (47-70); Platelet Count 366 K/mm3 (150-450); RBC Distribution Width CV 14.9 % (11.6-14.6); RBC Distribution Width SD 47.6 fl (35.1-43.9); Red Blood Count 3.94 M/mm3 (4.2-5.4); White Blood Count 8.8 K/mm3 (4.4-11.0)
[2022-07-27 17:41] LABS: Anion Gap 9 (5-15); BUN 18 mg/dL (7-18); BUN/Creat Ratio 17.1 RATIO (10-20); Chloride 102 mmol/L (98-107); Creatinine, Serum 1.05 mg/dL (0.55-1.02); EST Glomerular Filtration Rate 54 mL/min (>60); Est Glom Filt Rate - Afr Amer 66 mL/min (>60); Glucose 90 mg/dL (74-106); Magnesium 1.8 mg/dL (1.6-2.6); Potassium 4.1 mmol/L (3.5-5.1); Sodium Level 137 mmol/L (136-145)
== END | disposition home or self-care (01) ==
LOC: LABSPEC 16:55
PROVIDERS: PCP Internal Medicine; Referring Provider Internal Medicine; Visit Provider Internal Medicine
DX: D64.9 Anemia, unspecified (principal); E11.9 Type 2 diabetes mellitus without complications; E83.42 Hypomagnesemia; E87.1 Hypo-osmolality and hyponatremia
CPT/HCPCS: 80048; 83735; 85025

== ENCOUNTER 2022-08-23 10:30 | Outpatient (RCR) | payer MEDICARE, OTHER, SELFPAY ==
--- NOTE | 2022-07-25 15:09 | HP.PTEVAL ---
Patient's Visit Information NORY AUGUSTIN is a 76 year old F referred to Physical Therapy by Dr. Kyara Green DO with a diagnosis of MYELOPATHY. Date of Evaluation: 07/25/22 Physical Therapist: Twin Dinh, PT, Cert MDT, OCS - Visit Plan Frequency: 2x /Week Duration: 4 Weeks Plan: S/P LUMBAR LAMIECTOMY WITH FUSION 06/27. BRACE NEEEDED ,USE FWW. PT INTERVENTIONS POSTURAL EX'S ,BLE STRNGTHENING ,DLS ,FUNCTIONAL STRENGTHENING AND BALANCE PROGRAM - Subjective This 76 y/o female presents to physical therapy with laminectomy and revision of fusion. Patient underwent s/p laminectomy with revision lumbar fusion 06/27/22 [facility] patient was d/c July [address] Hernandez . Patient had spinal leakage thus repaired. Patient TCU [facility] 07/03/22 ,07/15 D/C to home. Patient seen Last week and had stephon. removed Patient uses lumbar brace and uses FFW for gait. Patient had lumbar fusion ~10 years ago. Patient developed pain left side progressively worse thus seen DR thus had MRI. Patient is active prior to surgery even stopped bowling. Patient denies paresthesia/tingling. Bowel/bladder -. Coughing/sneezing-. Patient sleeping okay. Patient has Buglow with 3 steps. Walk-in shower. Patient is able to dressing. Patient spouse does cooking cleaning. Patient has no falls. Patient has no pain just weakness. Patient meds gabapentin. Patient condition affects QOL and function. Patient goals to get stronger. SOCIAL: . VOCATION: retired - Objective POSTURE: mild forward posture with lumbar brace ,hips/knees flexed. GAIT: reciprocal pattern with slow subhash hips/knee L>R flexed with fww. PALAPTION: tender paraspinals. NEURO: c/o paresthesia/tingling ,reflexes L3-4,L4-5.L5-S1. SKIN: incision well approximate. LUMBAR ROM: flexion mod/severe loss ,extension severe loss. FLEXABLITY: hamstrings WFL. BALANCE: fair + with fww - Balance/Special Test Scores Oswestry Low Back Score: 27 - Goals Goal 1:: Patient to be I with HEP Goal Time Frame: 4-6 Weeks Goal 2:: Patient to be I with posture for ADL 80% Goal Time Frame: 4-6 Weeks Goal 3:: Patient to improve lumbar ROM for function of recovery to tie shoes . Goal Time Frame: 4-6 Weeks Goal 4:: Patient to demonstrate 50 % improvement with improve function. Goal Time Frame: 4-6 Weeks Goal 5:: Patient to improve back oswestry score by 5 points to improve function Goal Time Frame: 4-6 Weeks - Rehabilitation Potential Physical Therapy Diagnosis: Patient underwent s/p lumbar laminectomy with revision lumbar fusion 06/[address] Aragon with weakness ,decrease gait ,decrease Lumbar ROM ,needs FWW for balance impairs ADLS and housework tasks thus benefit skilled PT Rehabilitation Potential: Good - Anticipated Interventions Patient/Client Instruction: Educate patient on: Condition, Plan of Care For the Purpose of:: To decrease pain, To increase ROM, To improve muscle performance and motor function, To improve ability to perform ADL's, To increase tolerance to activity/condition/position, To improve ability of physical actions for home/community/work/leisure, To improve health of tissue, To decrease soft tissue restriction, To increase flexibility/ROM, To improve endurance, To improve balance, To improve tolerance to ADL's Therapeutic Exercise to Include: Strength training, Endurance training, Balance training, Body mechanics, Postural training, Flexibilty training, Active ROM, Dynamic Lumbar Stabilization For the Purpose of:: To decrease pain, To improve muscle performance and motor function, To improve ability to perform ADL's, To increase tolerance to activity/condition/position, To improve ability of physical actions for home/community/work/leisure, To improve health of tissue, To decrease soft tissue restriction, To increase flexibility/ROM, To improve endurance, To improve balance, To improve tolerance to ADL's Thank you for the opportunity to evaluate your patient. For Medicare and Medicare HMO plans, please review the plan of care and approve it. It will need to be FAXED BACK to us at [phone] for Medicare purposes. For Medicare only, by signing this I certify the plan of care. Please let me know if there are questions or concerns regarding this plan of care. Physician Signature: Date:
--- NOTE | 2022-08-23 11:00 | HP.PTDCSUM ---
It has been my pleasure to treat NORY AUGUSTIN referred by Dr. Yoli Gimenez MD, with the diagnosis of MYELOPATHY for a total of 8 visit(s). Discharge Date: Please see the following information for a summary of their discharge status. Subjective: Wants to do therapy at home. Need to get more steady on feet. Uses cane community distances. no device in home Back Pain Intensity (Out of 10): 1 % Improvement: 60 Objective/Function: POSTURE: mild forward posture with lumbar brace ,hips/knees flexed. GAIT: reciprocal pattern hips/knee L>R flexed 2 point gait. PALAPTION: tender paraspinals. NEURO: c/o paresthesia/tingling ,reflexes L3-4,L4-5.L5-S1. SKIN: incision well approximate. LUMBAR ROM: flexion mod loss ,extension severe loss. FLEXABLITY: hamstrings WFL. BALANCE: good-. MMT: quad/hams 4/5 ,hip flexion 4/5 ,ankle 5/5 Goal 1:: Patient to be I with HEP Goal Progress: Goal Met Goal 2:: Patient to be I with posture for ADL 80% Goal Progress: Goal Met Goal 3:: Patient to improve lumbar ROM for function of recovery to tie shoes . Goal Progress: Goal Met Goal 4:: Patient to demonstrate 50 % improvement with improve function. Goal Progress: Goal Met Goal 5:: Patient to improve back oswestry score by 5 points to improve function Goal Progress: Goal Met Plan: D/C TO HEP If there are questions or concerns regarding this patient's physical therapy, please feel free to call me at [phone]. Thank you for the referral of this patient. Sincerely, Twin Dinh, PT, Cert MDT, OCS Balance/Gait/Functional tests - Balance/Special Test Scores Oswestry Low Back Score: 12
== END 2022-08-23 19:00 | disposition home or self-care (01) ==
LOC: PT 10:30
PROVIDERS: PCP Internal Medicine; Referring Provider Internal Medicine; Visit Provider Internal Medicine
DX: G95.9 Disease of spinal cord, unspecified (principal); Z98.1 Arthrodesis status; Z73.89 Other problems related to life management difficulty
CPT/HCPCS: 97110; 97162

== ENCOUNTER → 2022-08-25 | Outpatient (CLI) | payer MEDICARE, OTHER, SELFPAY ==
--- NOTE | 2022-08-25 08:24 | BI_ITS ---
MAMMOGRAPHY - BILATERAL SCREENING REASON FOR EXAM: Female, 76 years old. Routine annual screening examination. PERTINENT HISTORY: Non-contributory. TECHNIQUE: Digital bilateral breast maddie (3D mammographic acquisition) in the CC and MLO projections. 2-D mediolateral oblique (MLO) and craniocaudad (CC) views of both breasts were obtained. CAD: Full Field Digital Mammography with Computer Added Detection was performed. COMPARISON: Comparison is made with prior study dated July 19, 2021 and July 16, 2020. FINDINGS: Breast Composition: The breasts are heterogeneously dense, which may obscure small masses. There are no dominant masses or suspicious calcifications. Stable bilateral scattered calcifications. No focal cluster is seen. No other significant abnormalities are identified. There has been no significant change since the prior study. BI/SCRN MAMM (CAD)W/MADDIE BILAT IMPRESSION: Stable bilateral screening mammogram. Yearly follow-up mammogram recommended. (A) ASSESSMENT CATEGORY: BIRADS Category 2: Benign. A letter regarding these results will be sent to the patient by the facility within 30 days. Approximately 10% of breast cancers are not detected by mammography. A normal mammogram should not delay biopsy of a clinically suspicious abnormality. [id number] Electronically Signed: Aiden Dalton MD at 9:50 EDT ,
== END | disposition home or self-care (01) ==
LOC: OPBI 08:22
PROVIDERS: PCP Internal Medicine; Referring Provider Internal Medicine; Visit Provider Internal Medicine
DX: Z12.31 Encounter for screening mammogram for malignant neoplasm of breast (principal)
CPT/HCPCS: 77063; 77067

== ENCOUNTER 2023-08-25 04:28 | Emergency (ER) | payer MEDICARE, OTHER, SELFPAY ==
[2023-08-25 04:28] VITALS: BP 182/82; PULSE 82; RESP 16; TEMP 36.4; O2SAT 98; BMI 26.6
--- NOTE | 2023-08-25 04:50 | RAD_ITS ---
EXAM: XR LEFT HAND COMPLETE, 3 OR MORE VIEWS CLINICAL INDICATION: FALL/INJURY TECHNIQUE: Frontal, lateral and oblique views of the left hand. COMPARISON: Left forearm radiographs of this date. FINDINGS: BONES/JOINTS: Degenerative spurring noted about the index through little finger DIP joints with degenerative narrowing of the index and long finger DIP joints. There is also mild degenerative spurring about the ring finger PIP joint. Nonspecific amorphous periarticular soft tissue calcifications are present, greatest adjacent to the long finger DIP joint. Mild sclerosis and flattening of the lunate is again demonstrated as noted on today''s forearm radiographs, and this may be due to old trauma. No acute fracture or dislocation. SOFT TISSUES: Soft tissue swelling noted about the DIP and PIP joints. Additional soft tissue swelling noted about the wrist. Faint chondrocalcinosis noted within the triangular fibrocartilage. No radiopaque foreign body. RAD/Hand Min 3 Views IMPRESSION: 1. Degenerative osteoarthritis. 2. Soft tissue swelling. 3. No acute fracture or dislocation identified. Electronically Signed: Miguel A Fernando MD at 5:43 EDT ,
--- NOTE | 2023-08-25 04:50 | CT_ITS ---
EXAM: CT HEAD WITHOUT INTRAVENOUS CONTRAST CLINICAL INDICATION: FALL TECHNIQUE: Multiple axial images were obtained of the head without intravenous contrast. This CT exam was performed using one or more of the following dose reduction techniques: automated exposure control, adjustment of the mA and/or kV according to patient size, and/or use of iterative reconstruction technique. RADIATION DOSE: Total DLP: 745.49 mGy-cm. COMPARISON: No relevant prior studies available. FINDINGS: BRAIN AND EXTRA-AXIAL SPACES: Mild age-related atrophy is noted with prominence of the cortical sulci, basal cisterns, sylvian fissures and ventricles. Moderate patchy chronic small vessel ischemic changes are noted with deep and subcortical white matter tracts. No intra- or extra-axial hemorrhage. No intracranial mass or mass effect. Posterior fossa structures are unremarkable. BONES/JOINTS: There is mildly comminuted and mildly impacted fracture of the nasal bone, greater to the right of midline. No linear or depressed skull fracture is identified. Hyperostosis frontalis interna incidentally noted. No discrete lytic or blastic abnormalities. SOFT TISSUES: Soft tissues and scalp hematoma noted overlying the superior frontal bones at the midline. VASCULATURE: Atherosclerotic vascular calcification is present. The middle cerebral arteries are not hyperdense. SINUSES: Unremarkable as visualized. Clear. MASTOID AIR CELLS: Nonspecific fluid noted within the inferior left mastoid air cells. Right mastoid air cells are clear. No mastoid septal destruction is seen to indicate coalescent mastoiditis. ORBITS: Previous cataract extraction. CT/Brain/Head without Contrast IMPRESSION: 1. Soft tissue swelling and scalp hematoma overlying the superior frontal bones at the midline. 2. Atrophy and patchy chronic small vessel ischemic changes. 3. Nasal bone fracture. 4. No acute intracranial hemorrhage. Electronically Signed: Miguel A Fernando MD at 5:48 EDT ,
--- NOTE | 2023-08-25 04:50 | RAD_ITS ---
EXAM: XR LEFT FOREARM, 2 VIEWS CLINICAL INDICATION: FALL TECHNIQUE: Frontal and lateral views of the left forearm. COMPARISON: Left hand radiographs of this date. FINDINGS: BONES/JOINTS: There is mild flattening and sclerosis of the lunate suggesting old trauma. No acute fracture. No dislocation. SOFT TISSUES: Soft tissue swelling noted about the wrist. Fat pads of the elbow are not displaced. RAD/Forearm 2 Views IMPRESSION: Soft tissue swelling about the wrist. No acute fracture or dislocation. Electronically Signed: Miguel A Fernando MD at 5:36 EDT ,
--- NOTE | 2023-08-25 04:50 | RAD_ITS ---
EXAM: XR RIGHT HAND COMPLETE, 3 OR MORE VIEWS CLINICAL INDICATION: fall/injury TECHNIQUE: Frontal, lateral and oblique views of the right hand. COMPARISON: Right forearm radiographs of this date. FINDINGS: BONES/JOINTS: Degenerative spurring is present about the DIP joints. Mineralization is normal. A few small nonspecific periarticular calcifications are identified. No acute fracture or dislocation. No sclerotic or destructive changes observed. SOFT TISSUES: Mild soft tissue swelling noted about the wrist. Soft tissue swelling noted about the DIP and PIP joints as well as about the second MCP joint. Faint chondrocalcinosis noted within the triangular fibrocartilage. RAD/Hand Min 3 Views IMPRESSION: Degenerative osteoarthritis. Soft tissue swelling. No acute fracture or dislocation identified. Electronically Signed: Miguel A Fernando MD at 5:40 EDT ,
--- NOTE | 2023-08-25 04:50 | RAD_ITS ---
EXAM: XR RIGHT FOREARM, 2 VIEWS CLINICAL INDICATION: fall/injury TECHNIQUE: Frontal and lateral views of the right forearm. COMPARISON: RIGHT hand radiographs of this date. FINDINGS: BONES/JOINTS: No acute fracture. No dislocation. Benign cystic foci noted within the triquetrum. SOFT TISSUES: Soft tissue swelling noted about the wrist. Fat pads of the elbow are not displaced. Chondrocalcinosis noted within the triangular fibrocartilage. RAD/Forearm 2 Views IMPRESSION: Soft tissue swelling about the wrist. No acute fracture or dislocation. Electronically Signed: Miguel A Fernando MD at 5:34 EDT ,
--- NOTE | 2023-08-25 04:51 | EDS_ITS ---
HPI HPI - Fall History of Present Illness Chief Complaint: Fall Informant: patient Narrative Narrative: 77-year-old female states she got up in the middle of the night to urinate, sat on the toilet and urinated without any difficulty did not have a bowel movement was not bearing down. She states she fell asleep on the toilet and as she was falling off of it she woke up and then used her hands to help brace herself against the floor that she fell down 2, hitting her forehead and injuring her hands and forearms, and having a sore bloody nose for a while. No loss of consciousness from hitting her head she remembers everything after waking up, she denies any pain or injury anywhere else. She takes no antiplatelet or anticoagulant medications. Denies any recent illness. [facility] Medical History Lumbar canal stenosis Radiculopathy Osteopenia Osteoarthritis Diabetes mellitus, type 2 Cataract Benign essential HTN Home Medications ?Medication ?Instructions ?Recorded ?Last Taken ?Type Chondroitin Sulfate 1 tab PO DAILY 02/28/13 Unknown History niacin 500 mg tablet,extended 500 mg PO QHS Supplement 02/28/13 Unknown History release 24 hr omega-3 fatty acids-fish oil 360 1 ea PO DAILY Supplement 02/28/13 Unknown History mg-1,200 mg capsule amlodipine 5 mg tablet 5 mg PO DAILY BP 07/03/22 Unknown History docusate sodium 100 mg capsule 100 mg PO QODAY Constipation 07/03/22 Unknown History fexofenadine 180 mg tablet 180 mg PO DAILY Allergies 07/03/22 Unknown History glucosamine sulfate 500 mg tablet 500 mg PO BID Supplement 07/03/22 Unknown History (Glucosamine) multivitamin 1 tab PO DAILY Supplement 07/03/22 Unknown History cholecalciferol (vitamin D3) 25 25 mcg PO DAILY #30 tabs 07/15/22 Unknown Rx mcg (1,000 unit) tablet magnesium chloride 64 mg 128 mg (2 x 64 mg) PO BID #60 tabs 07/15/22 Unknown Rx (magnesium chloride) tablet,delayed release (Mag 64) metformin 500 mg tablet 500 mg PO BIDCM #60 tabs 07/15/22 Unknown Rx sennosides 8.6 mg-docusate sodium 2 tab PO BID #120 tabs 07/15/22 Unknown Rx 50 mg tablet (Stool Softener-Stimulant Laxative) glimepiride 1 mg tablet 1 mg PO DAILY 08/25/23 Unknown History lisinopril 20 1 tab PO BID 08/25/23 Unknown History mg-hydrochlorothiazide 12.5 mg tablet Allergy/AdvReac Type Severity Reaction Status Date / Time chocolate flavor Allergy Severe Unknown Verified 08/25/23 04:29 aspirin AdvReac Other Verified 08/25/23 04:29 Family History (Updated 07/04/22 @ 10:[address] Kyara Green DO) Mother Myocardial infarction Alzheimer's dementia Father Myocardial infarction Cancer Prostate cancer Surgical History History of hysterectomy History of tubal ligation H/O bilateral cataract extraction S/P lumbar fusion History of lumbar fusion S/P hysterectomy S/P lumbar fusion Social History household members: spouse housing: house number of children: 0 Smoking Status: Never smoker Electronic Cigarette Use: not used alcohol intake: never ROS ROS ED Constitutional Constitutional ED: Denies chills or fever(s) Eyes Eyes: Denies change in vision or diplopia ENT ENT ED: Reports epistaxis; Denies ear pain, facial pain or rhinorrhea Cardiovascular Cardiovascular: Denies chest pain or palpitations Respiratory/Chest Respiratory/Chest: Denies cough or dyspnea Gastrointestinal Gastrointestinal: Denies abdominal pain, diarrhea, melena, nausea or vomiting Genitourinary Genitourinary ED: Denies dysuria or hematuria Musculoskeletal Musculoskeletal: Reports extremity pain; Denies back pain or neck pain Integumentary Denies abscess, Abrasions, laceration or rash Neurologic Neurologic: Reports headache(s); Denies confusion, paresthesias or weakness EXAM Physical Exam Const Vital Signs: 08/25/23 04:28 08/25/23 04:28 08/25/23 05:51 Temperature 97.6 F L Temperature Source Temporal Pulse Rate 82 Respiratory Rate 16 Respiratory Effort Normal Non-Labored Respiratory Depth Normal Respiratory Pattern Normal Blood Pressure 182/82 H 187/80 H Blood Pressure Mean 115 115 Pulse Ox 98 Oxygen Delivery Method Room Air Room Air Positive well nourished and well developed General Appearance ED: well developed and NAD HEENT Reports TM's clear and nasal mucous membranes and turbinates normal HEENT Narrative: Blood within both nares, and abrasion to the bridge of the nose, but no swelling, deformity, nor any bony nasal tenderness. The rest of the facial bones are nontender. There is no intraoral injury. trauma and hematoma Hematoma Size: 4-5 cm, mid forehead without crepitance or depression or laceration Face and Sinus: Negative for facial tenderness Tympanic Membrane ED: Yes TM's clear Eyes PERRL and EOMs intact bilaterally Visual Acuity: other Other Details: no entrapment or pain with extraocular movements Neck full ROM and supple General: Negative for tenderness Chest Wall inspection of chest normal and palpation of chest normal Chest: symmetrical chest wall rise; Negative for crepitus or tenderness Resp normal respiratory effort and clear to auscultation bilaterally Percussion: other equal BS bilat Cardio no murmurs Rate: regular rate Rhythm: regular rhythm GI normal to inspection, nondistended, normoactive bowel sounds, soft to palpation and non-tender Back/Spine normal ROM Cervical Spine: Negative for cervical spine tenderness Thoracic Spine / Upper Back: Negative for thoracic spinal tenderness Lumbar Spine / Lower Back: Negative for lumbar spinal tenderness Extremity normal to inspection Extremity Narrative: In both the upper extremities she has some dorsal proximal third of the forearm tenderness that seems to be between the ulna and the radius, tenderness throughout the fifth metacarpal, and mild tenderness at the ulnar aspect of the carpus but not the distal radius or ulna. Pain and tenderness are fairly symmetric bilaterally. She can move the wrists and fingers and elbows without any difficulty and has no pain or disability about the shoulders. There are no deformities in the forearms or hands. The legs move fully without any type of pain or limitation. General Extremety ED: Yes tenderness Neuro oriented x3, CN's II-XII intact bilaterally, moves all extremities, no focal motor deficits and no sensory deficits noted [place] Coma Scale: document GCS findings Spontaneous Obeys Commands Oriented 15 Sensorium / Orientation: awake and alert Psych mental status grossly normal and thought process normal Skin no wounds Lesions: no lesions Rashes: no rashes MDM MDM MDM Narrative Medical decision making narrative: Obtain 2 views of each forearm, both negative for acute fracture my interpretation, and 3 views of each hand, both series negative on my interpretation for acute fractures. Radiology in agreement on all of that. CT of the head was obtained in order to rule out intracranial injury, I reviewed the images and report which I agree with, negative for anything acute intracranial, but there is a nasal bone fracture seen. Interesting she is not tender at the nasal bone but it does explain her epistaxis which is well- controlled right now. Supportive care advised for that, will offer analgesics and appropriate discharge instructions. Radiography Diagnostic Testing: Clinical Impression(s) from Imaging Studies Brain CT 08/25/23 04:50 IMPRESSION: 1. Soft tissue swelling and scalp hematoma overlying the superior frontal bones at the midline. 2. Atrophy and patchy chronic small vessel ischemic changes. 3. Nasal bone fracture. 4. No acute intracranial hemorrhage. Electronically Signed: Miguel A Fernando MD at 5:48 EDT , Forearm X-Ray 08/25/23 04:50 IMPRESSION: Soft tissue swelling about the wrist. No acute fracture or dislocation. Electronically Signed: Miguel A Fernando MD at 5:34 EDT , Forearm X-Ray 08/25/23 04:50 IMPRESSION: Soft tissue swelling about the wrist. No acute fracture or dislocation. Electronically Signed: Miguel A Fernando MD at 5:36 EDT , Hand X-Ray 08/25/23 04:50 IMPRESSION: Degenerative osteoarthritis. Soft tissue swelling. No acute fracture or dislocation identified. Electronically Signed: Miguel A Fernando MD at 5:40 EDT , Hand X-Ray 08/25/23 04:50 IMPRESSION: 1. Degenerative osteoarthritis. 2. Soft tissue swelling. 3. No acute fracture or dislocation identified. Electronically Signed: Miguel A Fernando MD at 5:43 EDT , Discharge Plan Triage Chief Complaint: Fall ED Provider: Hubert Ni Dx/Rx/DC Orders Clinical Impression: Traumatic hematoma of forehead, Accidental fall from commode or toilet, Contusion of both upper extremities, Closed fracture nasal bone Instructions: Bruises (Contusions), ED Nose Fracture, with X-Ray, ED Hematoma Prescriptions: No Action niacin 500 MG tablet extended release 24 hr 500 mg PO QHS omega-3 fatty acids-fish oil 1 EACH capsule 1 ea PO DAILY Chondroitin Sulfate 1 tab PO DAILY multivitamin Tablet 1 tab PO DAILY glucosamine sulfate [Glucosamine] 500 mg Tablet 500 mg PO BID Rx Instructions: administer with meals fexofenadine 180 mg Tablet 180 mg PO DAILY amlodipine 5 mg Tablet 5 mg PO DAILY docusate sodium 100 mg Capsule 100 mg PO QODAY metformin 500 mg Tablet 500 mg PO BIDCM Qty: 60 0RF sennosides-docusate sodium [Stool Softener-Stimulant Laxat] 8.6-50 mg Tablet 2 tab PO BID Qty: 120 0RF Mag 64 64 mg Tablet,Delayed Release (Dr/Ec) 128 mg PO BID Qty: 60 0RF cholecalciferol (vitamin D3) 25 mcg (1,000 unit) Tablet 25 mcg PO DAILY Qty: 30 0RF lisinopril-hydrochlorothiazide 20-12.5 mg tablet 1 tab PO BID glimepiride 1 mg tablet 1 mg PO DAILY Primary Care Provider: Yoli Gimenez Referrals: Yoli Gimenez MD [Primary Care Provider] - As Needed Print Language: Faroese Disposition Disposition: Home, Self Care
[2023-08-25] MEDS: Acetaminophen 500 MG Tablet 1000 MG PO (05:43)
[2023-08-25 05:51] VITALS: BP 187/80
[2023-08-25 06:17] VITALS: BP 171/76; PULSE 78; RESP 16; TEMP 36.1; O2SAT 95
== END 2023-08-25 06:25 | disposition home or self-care (01) ==
PROVIDERS: Emergency Provider Emergency Medicine; PCP Internal Medicine; Visit Provider Emergency Medicine
DX: S02.2XXA Fracture of nasal bones, initial encounter for closed fracture (principal); E11.9 Type 2 diabetes mellitus without complications; I10 Essential (primary) hypertension; S00.83XA Contusion of other part of head, initial encounter; S40.021A Contusion of right upper arm, initial encounter; S40.022A Contusion of left upper arm, initial encounter; W18.11XA Fall from or off toilet without subsequent striking against object, initial encounter
CPT/HCPCS: 70450; 73090; 73130; 99282